=== PATIENT | female | born 1940 | race Caucasian/White ===

== ENCOUNTER → 2020-02-17 13:27 | Outpatient (BNV) | payer MEDICARE, SELFPAY | PROVIDERS: PCP Internal Medicine; Visit Provider Internal Medicine Medical Oncology | DX: C50.912 Malignant neoplasm of unspecified site of left female breast (principal) | CPT/HCPCS: 99213; 99214 ==

== ENCOUNTER 2020-03-31 13:59 | Outpatient (REF) | payer MEDICARE, SELFPAY | END 2020-03-31 14:00 | disposition home or self-care (01) | LOC: HO.LAB 13:59 | PROVIDERS: Visit Provider Internal Medicine | DX: Z20.828 Contact with and (suspected) exposure to other viral communicable diseases (principal) | CPT/HCPCS: 36415; C9803; U0003 ==

== ENCOUNTER 2020-10-04 10:14 | Outpatient (REF) | payer MEDICARE, SELFPAY ==
--- NOTE | ~2020-10-04 | MM_ITS ---
EXAMINATION: MM SCREENING DIGITAL BREAST TOMOSYNTHESIS, BILATERAL CLINICAL INFORMATION: Screening. Asymptomatic. Prior lumpectomy left breast 2012. COMPARISON: Mammography: 09/29/2019, 09/23/2018, 09/20/2017 TECHNIQUE: Digital breast tomosynthesis is performed in both the craniocaudal and mediolateral oblique views along with computer-aided detection (CAD). Synthesized 2D images are generated from the tomosynthesis. Additional left CC view is provided. FINDINGS: The breasts are heterogeneously dense, which may obscure small masses (ACR BI-RADS breast composition Category c). There are post therapy changes on the left with reduced breast size and stable scarring. Neither breast shows developing density or interval mass or architectural abnormality. No abnormal calcifications. No significant changes. MM/MM tomosynthesis screening BI IMPRESSION: No mammographic evidence of malignancy. ASSESSMENT: BI-RADS 2: Benign RECOMMENDATION: Routine annual mammography screening. This patient's information was entered into a reminder system with a target due date for their next mammogram.
== END 2020-10-04 10:15 | disposition home or self-care (01) ==
LOC: HO.MAMMO 10:14
PROVIDERS: PCP Internal Medicine; Visit Provider Internal Medicine Medical Oncology
DX: Z12.31 Encounter for screening mammogram for malignant neoplasm of breast (principal)
CPT/HCPCS: 77063; 77067

== ENCOUNTER 2021-02-02 08:28 | Outpatient (REF) | payer MEDICARE, SELFPAY ==
[2021-02-02 11:23] LABS: MANUAL DIFF FLAG NO
[2021-02-02 11:36] LABS: Basophils Absolute Auto 0.1 X10*3/uL (0.0-0.2); Basophils Percent Auto 0.8 % (0-2); Eosinophils Absolute Auto 0.5 X10*3/uL (0.0-0.4); Eosinophils Percent Auto 5.8 % (0-4); Hematocrit 34.4 % (37.0-47.0); Hemoglobin 11.3 g/dl (12.0-16.0); Imm Gran Abs Auto 0.02 X10*3/uL (0.00-0.03); Imm Gran Pct Auto 0.3 % (0.0-0.4); Lymphocytes Absolute Auto 2.1 X10*3/uL (1.2-4.9); Mean Corpuscular HGB Conc 32.8 g/dl (31.0-35.0); Mean Corpuscular Hemoglobin 31.3 pg (27.0-33.0); Mean Corpuscular Volume 95.3 fL (80.0-98.0); Mean Platelet Volume 10.7 fL (9.4-12.3); Monocytes Absolute Auto 0.6 X10*3/uL (0.1-1.2); Monocytes Percent Auto 7.6 % (2-11); Neutrophils Absolute Auto 4.7 x10*3/uL (2.0-8.3); Neutrophils Percent Auto 59.5 % (45-73); Platelet Count 255 X10*3/uL (160-400); Red Blood Count 3.61 X10*6/uL (4.20-5.50); Red Cell Distribution Width 12.8 % (11.0-16.0); White Blood Count 7.9 X10*3/uL (4.8-10.8)
[2021-02-02 11:47] LABS: Alanine Aminotransferase 15 U/L (0-31); Albumin Level 4.2 g/dL (3.5-5.0); Alkaline Phosphatase 38 U/L (39-117); Anion Gap 10 (12-20); Aspartate Amino Transferase 23 U/L (5-31); Bilirubin Total 0.8 mg/dL (0.0-1.0); Blood Urea Nitrogen 12 mg/dL (9-16); Calcium 9.1 mg/dL (8.4-10.2); Carbon Dioxide 28 mmol/L (22-29); Chloride 102 mmol/L (96-108); Cholesterol 189 mg/dL; Estimated Glomerular Filt Rate > 60; Glucose Random 99 mg/dL (60-115); HDL Cholesterol 68 mg/dL; Iron 98 mcg/dL (30-160); LDL Cholesterol Calculated 110 mg/dl; Percent Iron Saturation 31 % (15-50); Potassium 4.4 mmol/L (3.3-5.1); Sodium 136 mmol/L (135-145); Total Iron Binding Capacity 312 mcg/dL (228-428); Total Protein 7.2 g/dL (6.5-8.0); Triglycerides 56 mg/dL; Unsaturated Iron Binding 214 ug/dL
[2021-02-02 12:08] LABS: Ferritin 254 ng/mL (10-250); Thyroid Stimulating Hormone 1.57 uIU/mL (0.32-4.0)
== END 2021-02-02 08:29 | disposition home or self-care (01) ==
LOC: HO.HMGCLDS 08:28
PROVIDERS: PCP Internal Medicine; Visit Provider Internal Medicine
DX: I10 Essential (primary) hypertension (principal); E78.00 Pure hypercholesterolemia, unspecified; D64.9 Anemia, unspecified
CPT/HCPCS: 36415; 80053; 80061; 82728; 83540; 84443; 85025

== ENCOUNTER 2021-10-05 11:48 | Outpatient (REF) | payer MEDICARE, SELFPAY ==
--- NOTE | ~2021-10-05 | MM_ITS ---
EXAMINATION: BONE DENSITOMETRY CLINICAL INDICATION: Age-related osteoporosis without current pathological fracture. COMPARISON: Previous BD dated 10/17/2016 and baseline BD dated 02/22/2006. TECHNIQUE: Using a [employer] DXA System (software version: 13.1) manufactured by [email or web address], dual-energy x-ray absorptiometry was performed of the lumbar spine and left hip. The images are of good technical quality. Summary results are attached. FINDINGS: AP SPINE L1-L3 (excluding L4): The data of L1-L4 has been changed to exclude the L4 vertebral body, because degenerative changes at this level may cause overestimation of lumbar spine density. Current: BMD 0.748 g/cm2, Z-score -1.0, T-score -3.5, osteoporosis, 8.8% decrease from previous, 11.3% decrease from baseline (<5% change is not significant). Prior: BMD 0.820 g/cm2. Baseline: BMD 0.843 g/cm2. LEFT FEMUR, NECK: Current: BMD 0.582 g/cm2, Z-score -0.7, T-score -3.3, osteoporosis. Prior: BMD 0.679 g/cm2. Baseline: BMD 0.715 g/cm2. LEFT FEMUR, TOTAL: Current: BMD 0.605 g/cm2, Z-score -0.7, T-score -3.2, osteoporosis, 14.9% decrease from previous, 18.8% decrease from baseline (<5% change is not significant). Prior: BMD 0.711 g/cm2. Baseline: BMD 0.745 g/cm2. IDENTIFIED RISK FACTORS: Osteoporosis, height loss, history of fracture (adult), menopause. HISTORY OF FRACTURE: Wrist. MEDICATIONS: Calcium supplements or multivitamin, vitamin D, ERT/SERMS, bisphosphonate. MM/XR DEXA axial skeleton IMPRESSION: 1. DIAGNOSIS: Osteoporosis based on the lowest T-score value of -3.5 in the lumbar spine applying World Health Organization criteria. 2. 10-YEAR FRACTURE RISK PREDICTION, FRAX: According to the guidelines, FRAX calculation should only be performed on patients in the osteopenia bone density category. Therefore, FRAX was not performed on this patient. 3. Treatment Recommendations: NOF guidelines recommend consideration for treatment in postmenopausal women and men age 50 and older presenting with the following: -A hip or vertebral (clinical or morphometric) fracture. -T-score less than or equal to -2.5 at the femoral neck or spine after appropriate evaluation to exclude secondary causes. -Low bone mass at the hip or spine and a 10-year fracture probability by FRAX of greater than or equal to 3% for hip fracture or greater than or equal to 20% for major osteoporotic fracture based on the [place] adapted WHO algorithm. 4. Other Recommendations: All treatment decisions require clinical judgment and consideration of individual patient factors, including patient preferences, comorbidities, previous drug use, risk factors not captured in the FRAX model (e.g. frailty, falls, vitamin D deficiency, increased bone turnover, interval significant decline in bone density) and possible under or overestimation of fracture risk by FRAX. Additional medical evaluation for secondary cause of low bone mineral density may be appropriate. FUTURE SCAN RECOMMENDATION: People with diagnosed cases of osteoporosis or at high risk for fracture should have regular bone mineral density tests. For patients eligible for Medicare, routine testing is allowed once every 2 years. The testing frequency can be increased to one year for patients who have rapidly progressing disease, those who are receiving or discontinuing medical therapy to restore bone mass, or have additional risk factors.
--- NOTE | ~2021-10-05 | MM_ITS ---
EXAMINATION: MM SCREENING DIGITAL BREAST TOMOSYNTHESIS, BILATERAL CLINICAL INFORMATION: Screening. Asymptomatic. Left breast cancer status post lumpectomy, 2012. COMPARISON: Mammography: 10/04/2020, 09/29/2019, 09/23/2018, 09/20/2017 TECHNIQUE: Digital breast tomosynthesis is performed in both the craniocaudal and mediolateral oblique views along with computer-aided detection (CAD). Synthesized 2D images are generated from the tomosynthesis. Additional exaggerated left CC view is provided. FINDINGS: The breasts are heterogeneously dense, which may obscure small masses (ACR BI-RADS breast composition Category c). There are no significant masses, abnormal calcifications, or other abnormalities. Parenchymal pattern is similar to prior studies. There are post therapy changes on the left with reduced breast size and minor scarring similar to prior studies. MM/MM tomosynthesis screening BI IMPRESSION: -No mammographic evidence of malignancy. -Post therapy changes left breast. ASSESSMENT: BI-RADS 2: Benign RECOMMENDATION: Routine annual mammography screening. This patient's information was entered into a reminder system with a target due date for their next mammogram.
== END 2021-10-05 11:49 | disposition home or self-care (01) ==
LOC: HO.MAMMO 11:48
PROVIDERS: Visit Provider Internal Medicine
DX: Z12.31 Encounter for screening mammogram for malignant neoplasm of breast (principal); Z13.820 Encounter for screening for osteoporosis; Z85.3 Personal history of malignant neoplasm of breast; M81.0 Age-related osteoporosis without current pathological fracture; Z78.0 Asymptomatic menopausal state
CPT/HCPCS: 77063; 77067; 77080

== ENCOUNTER 2022-01-25 08:35 | Outpatient (REF) | payer MEDICARE, SELFPAY ==
[2022-01-25 12:45] LABS: Anion Gap 17 (12-20); Blood Urea Nitrogen 13 mg/dL (9-16); Calcium 8.9 mg/dL (8.4-10.2); Carbon Dioxide 24 mmol/L (22-29); Chloride 100 mmol/L (96-108); Estimated Glomerular Filt Rate > 60; Glucose Random 101 mg/dL (60-115); Potassium 4.1 mmol/L (3.3-5.1); Sodium 137 mmol/L (135-145)
== END 2022-01-25 08:36 | disposition home or self-care (01) ==
LOC: HO.HMGCLDS 08:35
PROVIDERS: PCP Internal Medicine; Visit Provider Internal Medicine
DX: I10 Essential (primary) hypertension (principal)
CPT/HCPCS: 36415; 80048

== ENCOUNTER 2022-09-05 09:44 | Outpatient (REF) | payer MEDICARE, SELFPAY ==
[2022-09-05 11:18] LABS: MANUAL DIFF FLAG NO
[2022-09-05 11:28] LABS: Basophils Absolute Auto 0.1 X10*3/uL (0.0-0.2); Basophils Percent Auto 0.6 % (0-2); Eosinophils Absolute Auto 0.3 X10*3/uL (0.0-0.4); Eosinophils Percent Auto 3.6 % (0-4); Hemoglobin 12.6 g/dl (12.0-16.0); Imm Gran Abs Auto 0.04 X10*3/uL (0.00-0.03); Imm Gran Pct Auto 0.4 % (0.0-0.4); Lymphocytes Absolute Auto 1.9 X10*3/uL (1.2-4.9); Lymphocytes Percent Auto 21.1 % (20-40); Mean Corpuscular HGB Conc 34.1 g/dl (31.0-35.0); Mean Corpuscular Hemoglobin 32.8 pg (27.0-33.0); Mean Corpuscular Volume 96.4 fL (80.0-98.0); Mean Platelet Volume 10.1 fL (9.4-12.3); Monocytes Absolute Auto 0.7 X10*3/uL (0.1-1.2); Monocytes Percent Auto 7.7 % (2-11); Neutrophils Percent Auto 66.6 % (45-73); Platelet Count 306 X10*3/uL (160-400); Red Blood Count 3.84 X10*6/uL (4.20-5.50); White Blood Count 9.1 X10*3/uL (4.8-10.8)
[2022-09-05 11:33] LABS: Appearance Urine Clear; Color Urine Yellow; Glucose Urine UA Negative (Negative); Leukocyte Esterase Urine Trace (Negative); Nitrite Urine Negative (Negative); PH 7.5 (5.0-9.0); UMIC TRIGGER UA YES; Urine Blood Negative (Negative); Urine Ketones Trace mg/dL (Negative); Urine Protein Negative (Neg-Trace)
[2022-09-05 11:38] LABS: Bacteria Urine None Seen (None Seen); Hyaline Casts Urine 0-2 /LPF (0-2); RBC Urine 0-2 /HPF (0-2); Squamous Epithelial Cell Urine 0-2 /HPF (0-2); WBC Urine 0-5 /HPF (0-5)
[2022-09-05 11:41] LABS: Estimated Average Glucose 100 mg/dL; Hemoglobin A1c % 5.1 %
[2022-09-05 11:46] LABS: Alanine Aminotransferase 16 U/L (0-31); Albumin Level 4.4 g/dL (3.5-5.0); Alkaline Phosphatase 46 U/L (39-117); Anion Gap 15 (12-20); Aspartate Amino Transferase 23 U/L (5-31); Bilirubin Total 0.9 mg/dL (0.0-1.0); Blood Urea Nitrogen 9 mg/dL (9-16); Calcium 9.6 mg/dL (8.4-10.2); Carbon Dioxide 25 mmol/L (22-29); Chloride 100 mmol/L (96-108); Cholesterol 209 mg/dL; Estimated Glomerular Filt Rate > 60; Glucose Random 94 mg/dL (60-115); HDL Cholesterol 72 mg/dL; LDL Cholesterol Calculated 126 mg/dl; Potassium 4.6 mmol/L (3.3-5.1); Sodium 135 mmol/L (135-145); Total Protein 7.9 g/dL (6.5-8.0); Triglycerides 56 mg/dL
[2022-09-05 12:05] LABS: Thyroid Stimulating Hormone 1.19 uIU/mL (0.32-4.0); Vitamin D 25-OH Total 68.9 ng/mL (>30)
== END 2022-09-05 09:45 | disposition home or self-care (01) ==
LOC: HO.HMGCLDS 09:44
PROVIDERS: PCP Internal Medicine; Visit Provider Internal Medicine
DX: I10 Essential (primary) hypertension (principal); E78.00 Pure hypercholesterolemia, unspecified; M81.6 Localized osteoporosis [Lequesne]; R73.01 Impaired fasting glucose; Z85.3 Personal history of malignant neoplasm of breast
CPT/HCPCS: 36415; 80053; 80061; 81001; 82306; 83036; 84443; 85025

== ENCOUNTER 2022-09-14 14:02 | Outpatient (REF) | payer MEDICARE, SELFPAY ==
--- NOTE | ~2022-09-14 | XR_ITS ---
EXAMINATION: XR CHEST CLINICAL INFORMATION: Hoarseness COMPARISON: June 08, 2017 TECHNIQUE: 2 views of the chest were obtained. FINDINGS: There is hyperinflation of the lungs. No acute parenchymal disease, pneumothorax, or pleural effusion identified. Heart normal size. No evidence of pulmonary edema. XR/XR chest 2V IMPRESSION: No acute disease.
== END 2022-09-14 14:03 | disposition home or self-care (01) ==
LOC: HO.HMGCX 14:02
PROVIDERS: PCP Internal Medicine; Visit Provider Internal Medicine
DX: I10 Essential (primary) hypertension (principal); R49.0 Dysphonia
CPT/HCPCS: 71046

== ENCOUNTER 2022-10-11 11:42 | Outpatient (REF) | payer MEDICARE, SELFPAY ==
--- NOTE | ~2022-10-11 | MM_ITS ---
EXAMINATION: MM SCREENING DIGITAL BREAST TOMOSYNTHESIS, BILATERAL CLINICAL INFORMATION: Screening. Asymptomatic. Left breast cancer status post lumpectomy 2013. COMPARISON: Mammography: 10/05/2021, 10/04/2020, 09/29/2019, 09/23/2018, and dating back to 2013. TECHNIQUE: Digital breast tomosynthesis is performed in both the craniocaudal and mediolateral oblique views along with computer-aided detection (CAD). Synthesized 2D images are generated from the tomosynthesis. FINDINGS: The breasts are heterogeneously dense, which may obscure small masses (ACR BI-RADS breast composition Category c). There are no significant masses, abnormal calcifications, or other abnormalities. Parenchymal pattern is similar to prior studies. There are post therapy changes on the left with reduced breast size and minor scarring similar to prior studies. MM/MM tomosynthesis screening BI IMPRESSION: No mammographic evidence of malignancy. ASSESSMENT: BI-RADS BI-RADS 2 - Benign Findings RECOMMENDATION: Routine annual mammography screening. 1 year F/U This examination should not preclude the clinical evaluation of a suspicious palpable abnormality. This patient's information was entered into a reminder system with a target due date for their next mammogram.
== END 2022-10-11 11:43 | disposition home or self-care (01) ==
LOC: HO.MAMMO 11:42
PROVIDERS: PCP Internal Medicine; Visit Provider Internal Medicine
DX: Z12.31 Encounter for screening mammogram for malignant neoplasm of breast (principal)
CPT/HCPCS: 77063; 77067

== ENCOUNTER → 2022-10-11 11:45 | Outpatient (BNV) | payer MEDICARE, SELFPAY | PROVIDERS: PCP Internal Medicine; Visit Provider Radiology Diagnostic Radiology | DX: Z12.31 Encounter for screening mammogram for malignant neoplasm of breast (principal) | CPT/HCPCS: 77063; 77067 ==

== ENCOUNTER 2022-11-21 13:41 | Outpatient (REF) | payer MEDICARE, SELFPAY ==
--- NOTE | ~2022-11-21 | XR_ITS ---
EXAMINATION: XR CHEST CLINICAL INFORMATION: Acute upper respiratory infection COMPARISON: 09/14/2022 TECHNIQUE: 2 views of the chest were obtained. FINDINGS: The lungs remain hyperinflated. There is no gross pneumothorax. The heart size is normal. No new focal consolidation to suggest pneumonia. No pleural effusion. Degenerative changes in the thoracic spine. XR/XR chest 2V IMPRESSION: No evidence of pneumonia.
== END 2022-11-21 13:42 | disposition home or self-care (01) ==
LOC: HO.HMGCX 13:41
PROVIDERS: PCP Internal Medicine; Visit Provider Internal Medicine
DX: J06.9 Acute upper respiratory infection, unspecified (principal)
CPT/HCPCS: 71046

== ENCOUNTER 2023-03-28 10:42 | Outpatient (REF) | payer MEDICARE, SELFPAY | END 2023-03-28 10:43 | disposition home or self-care (01) | LOC: HO.HMGCLDS 10:42 | PROVIDERS: PCP Internal Medicine; Visit Provider Internal Medicine | DX: I10 Essential (primary) hypertension (principal) | CPT/HCPCS: 36415; 80048 ==

== ENCOUNTER 2023-04-02 13:49 | Outpatient (REF) | payer MEDICARE, SELFPAY ==
[2023-04-02 16:09] LABS: MANUAL DIFF FLAG NO
[2023-04-02 16:10] LABS: Appearance Urine Clear; Color Urine Yellow; Glucose Urine UA Negative (Negative); Leukocyte Esterase Urine Negative (Negative); Nitrite Urine Negative (Negative); Urine Blood Negative (Negative); Urine Ketones Trace mg/dL (Negative); Urine Protein Negative (Neg-Trace)
[2023-04-02 16:14] LABS: Basophils Percent Auto 0.4 % (0-2); Eosinophils Percent Auto 0.2 % (0-4); Hemoglobin 9.8 g/dl (12.0-16.0); Imm Gran Abs Auto 0.05 X10*3/uL (0.00-0.03); Imm Gran Pct Auto 0.5 % (0.0-0.4); Lymphocytes Absolute Auto 0.9 X10*3/uL (1.2-4.9); Lymphocytes Percent Auto 9.5 % (20-40); Mean Corpuscular HGB Conc 32.7 g/dl (31.0-35.0); Mean Corpuscular Hemoglobin 30.6 pg (27.0-33.0); Mean Corpuscular Volume 93.8 fL (80.0-98.0); Mean Platelet Volume 9.1 fL (9.4-12.3); Monocytes Absolute Auto 0.5 X10*3/uL (0.1-1.2); Monocytes Percent Auto 5.7 % (2-11); Neutrophils Percent Auto 83.7 % (45-73); Platelet Count 505 X10*3/uL (160-400); Red Cell Distribution Width 13.4 % (11.0-16.0); White Blood Count 9.5 X10*3/uL (4.8-10.8)
[2023-04-02 16:24] LABS: D Dimer High Sensitivity 526 NG/ML
[2023-04-02 16:31] LABS: Alanine Aminotransferase 16 U/L (0-31); Albumin Level 3.6 g/dL (3.5-5.0); Alkaline Phosphatase 66 U/L (39-117); Anion Gap 12 (12-20); Aspartate Amino Transferase 20 U/L (5-31); Bilirubin Total 0.3 mg/dL (0.0-1.0); Blood Urea Nitrogen 8 mg/dL (9-16); Calcium 8.8 mg/dL (8.4-10.2); Carbon Dioxide 26 mmol/L (22-29); Chloride 98 mmol/L (96-108); Estimated Glomerular Filt Rate > 60; Glucose Random 141 mg/dL (60-115); Sodium 132 mmol/L (135-145)
== END 2023-04-02 13:50 | disposition home or self-care (01) ==
LOC: HO.HMGCLDS 13:49
PROVIDERS: PCP Internal Medicine; Visit Provider Internal Medicine
DX: R06.09 Other forms of dyspnea (principal); R60.0 Localized edema; R35.1 Nocturia
CPT/HCPCS: 36415; 80053; 81003; 85025; 85379; 87086

== ENCOUNTER 2023-04-03 12:53 | Outpatient (REF) | payer MEDICARE, SELFPAY ==
--- NOTE | ~2023-04-03 | US_ITS ---
EXAMINATION: US VENOUS ULTRASOUND WITH DOPPLER LOWER EXTREMITY, BILATERAL CLINICAL INFORMATION: Elevated d-dimer COMPARISON: None available. TECHNIQUE: Ultrasound of the deep veins is performed from the hip to the calf with compression sonography and color and pulse Doppler assessment. Spectral analysis with color-flow imaging is performed. FINDINGS: RIGHT: There is normal venous compression and respiratory variation and augmented flow. The visualized common femoral vein, superficial femoral vein, profunda femoral vein, popliteal vein, and the trifurcation region shows no evidence of deep venous thrombosis. There is no significant popliteal fossa cyst. LEFT: There is normal venous compression and respiratory variation and augmented flow. The visualized common femoral vein, superficial femoral vein, profunda femoral vein, popliteal vein, and the trifurcation region shows no evidence of deep venous thrombosis. There is no significant popliteal fossa cyst. If the patient's symptoms persist, followup ultrasound in 5 days 7 days might be of value to exclude proximal propagation from a non-visualized calf vein. US/US venous duplex LE BI IMPRESSION: No DVT demonstrated in either lower extremity.
== END 2023-04-03 12:54 | disposition home or self-care (01) ==
LOC: HO.US 12:53
PROVIDERS: PCP Internal Medicine; Visit Provider Internal Medicine
DX: R60.0 Localized edema (principal)
CPT/HCPCS: 93970

== ENCOUNTER → 2023-04-10 13:01 | Outpatient (REF) | payer MEDICARE, SELFPAY ==
--- NOTE | 2023-04-10 13:04 | CA_ITS ---
Transthoracic Echocardiogram Patient (Last, First, Middle): Katrina Ocampo E Gender: Female Date of : 1940 Age: 83 Procedure Date: 04/10/2023 Procedure Type: Transthoracic Echocardiogram Location: OP Height: 154.94 cm Weight: 44.45 kg BSA: 1.40 m2 Heart Rate: bpm BP: 110 / 60 mmHg [employer]: STEFANI Referring MD: Daniel Francois MD Symptoms: CONNELLY R06.09, PRIMARY HTN I10 EDEMA R60.0 Study Quality: Adequate ECG Rhythm: Sinus Conclusions: - The left ventricular systolic function is normal. The visually estimated ejection fraction is between 65-70%. - No obvious valvular pathology seen on this study. Findings Procedure Information The study quality is limited by patients body habitus. Left Ventricle Normal left ventricular cavity size. There is normal left ventricular wall thickness. The left ventricular systolic function is normal. The visually estimated ejection fraction is between 65-70%. There is no evidence of regional wall motion abnormalities. LV peak GLS -17.7%. Right Ventricle Normal right ventricular cavity size and systolic function. Atria Both atria are normal in size. Aortic Valve There is a normal trileaflet aortic valve. There is no aortic valve stenosis. There is no aortic valve regurgitation. Mitral Valve There is mild mitral annular calcification. There is trace mitral valve regurgitation. There is no mitral valve stenosis. Pulmonic Valve The pulmonic valve is likely normal. Tricuspid Valve Normal tricuspid valve structure. There is trace tricuspid valve regurgitation. There is no evidence of pulmonary hypertension. Great Vessels The asc aorta is normal in size. Venous The inferior vena cava is normal in size and collapses greater than 50% with inspiration. Pericardium/Pleural There is no evidence of pericardial effusion. Prior Study Comparison No prior study available for comparison. Recommendations, Care & Conclusions No obvious valvular pathology seen on this study. Measurements 2D Linear Measurements IVSd: 0.78 0.6-0.9/0.6-1.0 cm LVIDd: 3.23 3.9-5.3/4.2-5.9 cm LVIDd Index: 2.31 2.4-3.2/2.2-3.1 cm/m2 LVIDs: 1.76 2.0-3.6 cm LVPWd: 0.73 0.7-1.1 cm LA Diam: 1.90 2.7-3.8/3.0-4.0 cm LAIDs Index: 1.36 1.5-2.3 cm/m2 LV Mass: 75.01 67-162/88-224 g LV Mass Index: 53.58 43-95/49-115 g/m2 LVOT Diam: 1.80 3.0+(-)1.3 cm 2D Systolic Function EF 4C: 75.10 >55% EF 2C: 71.30 >55% EF BiP: 74.00 >55% Mitral Valve MV Pk E: 0.70 MV PK A: 0.72 MV Decel Time: 202.00 E/A: 1.00 E'Lateral: 9.03 E'Medial: 6.64 E/E' Med: 10.60 E/E' Lat: 7.80 PHT: 59.00 MVA PHT: 3.73 Decel Imperial: 3.49 Aortic Valve AoV Pk Cal: 1.33 AoV Mn Cal: 0.88 AoV VTI: 0.25 AoV Pk Grad: 7.00 Aov Mn Grad: 4.00 SERENITY Cont.VTI: 2.42 LVOT LVOT Pk Cal: 1.09 LVOT Mn Cal: 0.73 LVOT VTI: 0.24 LVOT Pk Grad: 5.00 LVOT Mn Grad: 2.00 LVOT Diam: 1.80 LVOT Area: 2.54 Diastolic Function MV Pk E: 0.70 MV Pk A: 0.72 E/A: 1.00 E'Medial: 6.64 E/E' Med: 10.60 E' Laterial: 9.03 E/E' Lat: 7.80 Tricuspid Valve TR Pk Cal: 2.63 TR Pk Grad: 28.00 RA Press: 3.00 RVSP: 31.00 Great Vessels Aorta Ao Asc: 2.60 2.1-3.4 cm Updated in Other Vendor System with Status of Final Minh Bah MD electronically signed on 04/11/2023 11:55:30 AM with status of Final
== END ==
LOC: HO.CARD 13:01
PROVIDERS: PCP Internal Medicine; Visit Provider Internal Medicine
DX: R06.09 Other forms of dyspnea (principal); R60.0 Localized edema; I10 Essential (primary) hypertension
CPT/HCPCS: 93306; 93356

== ENCOUNTER → 2023-04-10 13:04 | Outpatient (BNV) | payer MEDICARE, SELFPAY | PROVIDERS: PCP Internal Medicine; Visit Provider Internal Medicine | DX: I34.81 Nonrheumatic mitral (valve) annulus calcification (principal) | CPT/HCPCS: 93306 ==

== ENCOUNTER 2023-04-25 13:09 | Outpatient (REF) | payer MEDICARE, SELFPAY ==
--- NOTE | ~2023-04-25 | XR_ITS ---
EXAMINATION: XR CHEST CLINICAL INFORMATION: Pleural effusion. COMPARISON: 11/21/2022 TECHNIQUE: 2 views of the chest were obtained. FINDINGS: The lungs remain hyperexpanded. Right lower lobe infiltrate. No pleural effusion. Cardiac silhouette is unchanged. XR/XR chest 2V IMPRESSION: Right lower lobe pneumonia. Follow-up until resolution is advised.
== END 2023-04-25 13:10 | disposition home or self-care (01) ==
LOC: HO.XRAY 13:09
PROVIDERS: PCP Internal Medicine; Visit Provider Internal Medicine
DX: J90 Pleural effusion, not elsewhere classified (principal)
CPT/HCPCS: 71046

== ENCOUNTER 2023-04-27 11:42 | Outpatient (REF) | payer MEDICARE, SELFPAY ==
[2023-04-27 13:08] LABS: MANUAL DIFF FLAG NO
[2023-04-27 13:32] LABS: Basophils Absolute Auto 0.1 X10*3/uL (0.0-0.2); Basophils Percent Auto 0.8 % (0-2); Eosinophils Absolute Auto 0.1 X10*3/uL (0.0-0.4); Eosinophils Percent Auto 0.8 % (0-4); Imm Gran Abs Auto 0.03 X10*3/uL (0.00-0.03); Imm Gran Pct Auto 0.4 % (0.0-0.4); Lymphocytes Absolute Auto 1.9 X10*3/uL (1.2-4.9); Lymphocytes Percent Auto 24.3 % (20-40); Mean Corpuscular HGB Conc 32.4 g/dl (31.0-35.0); Mean Corpuscular Hemoglobin 29.8 pg (27.0-33.0); Mean Corpuscular Volume 92.1 fL (80.0-98.0); Mean Platelet Volume 9.1 fL (9.4-12.3); Monocytes Absolute Auto 0.7 X10*3/uL (0.1-1.2); Monocytes Percent Auto 8.9 % (2-11); Neutrophils Percent Auto 64.8 % (45-73); Platelet Count 359 X10*3/uL (160-400); Red Blood Count 3.69 X10*6/uL (4.20-5.50); Red Cell Distribution Width 13.2 % (11.0-16.0); White Blood Count 7.7 X10*3/uL (4.8-10.8)
[2023-04-27 14:17] LABS: Alanine Aminotransferase 13 U/L (0-31); Alkaline Phosphatase 56 U/L (39-117); Anion Gap 13 (12-20); Aspartate Amino Transferase 21 U/L (5-31); Bilirubin Total 0.3 mg/dL (0.0-1.0); Blood Urea Nitrogen 10 mg/dL (9-16); Carbon Dioxide 26 mmol/L (22-29); Chloride 99 mmol/L (96-108); Estimated Glomerular Filt Rate > 60; Glucose Random 90 mg/dL (60-115); Iron 83 mcg/dL (30-160); Percent Iron Saturation 28 % (15-50); Potassium 4.3 mmol/L (3.3-5.1); Sodium 134 mmol/L (135-145); Total Iron Binding Capacity 298 mcg/dL (228-428); Total Protein 7.7 g/dL (6.5-8.0); Unsaturated Iron Binding 215 ug/dL
[2023-04-27 14:36] LABS: Ferritin 211 ng/mL (10-250); Thyroid Stimulating Hormone 1.35 uIU/mL (0.32-4.0)
[2023-04-27 15:16] LABS: Folate 5.7 ng/mL (> or = 4.0); Vitamin B12 535 pg/mL (200-900)
== END 2023-04-27 11:43 | disposition home or self-care (01) ==
LOC: HO.HMGCLDS 11:42
PROVIDERS: PCP Internal Medicine; Visit Provider Internal Medicine
DX: J90 Pleural effusion, not elsewhere classified (principal); I10 Essential (primary) hypertension; D64.9 Anemia, unspecified
CPT/HCPCS: 36415; 80053; 82607; 82728; 82746; 83540; 84443; 85025

== ENCOUNTER 2023-06-14 11:53 | Outpatient (REF) | payer MEDICARE, SELFPAY ==
--- NOTE | ~2023-06-14 | XR_ITS ---
EXAMINATION: XR CHEST CLINICAL INFORMATION: Pneumonia COMPARISON: 04/25/2023 TECHNIQUE: 2 views of the chest were obtained. FINDINGS: Seen on the previous examination right lower lobe pneumonia has been resolved. The rest of lungs are clear and cardiomediastinal silhouette is normal. Osseous structures are unremarkable XR/XR chest 2V IMPRESSION: Resolution of pneumonia
== END 2023-06-14 11:54 | disposition home or self-care (01) ==
LOC: HO.XRAY 11:53
PROVIDERS: PCP Internal Medicine; Visit Provider Internal Medicine
DX: J18.8 Other pneumonia, unspecified organism (principal)
CPT/HCPCS: 71046

== ENCOUNTER 2023-10-16 11:42 | Outpatient (REF) | payer MEDICARE, SELFPAY ==
--- NOTE | ~2023-10-16 | MM_ITS ---
EXAMINATION: MM SCREENING DIGITAL BREAST TOMOSYNTHESIS, BILATERAL CLINICAL INFORMATION: Screening. Asymptomatic. The patient has a history of prior left breast cancer which has been treated with conservation surgery. COMPARISON: Mammography: This study is compared with prior exams dating back to TECHNIQUE: Digital breast tomosynthesis is performed in both the craniocaudal and mediolateral oblique views along with computer-aided detection (CAD). Synthesized 2D images are generated from the tomosynthesis. FINDINGS: There are scattered areas of fibroglandular density (ACR BI-RADS breast composition Category b). There are no significant masses, abnormal calcifications, or other abnormalities. There are architectural changes in the left breast from prior surgery for breast cancer. MM/MM tomosynthesis screening BI IMPRESSION: No mammographic evidence of malignancy. ASSESSMENT: BI-RADS BI-RADS 2 - Benign Findings RECOMMENDATION: Routine annual mammography screening. 1 year F/U This examination should not preclude the clinical evaluation of a suspicious palpable abnormality. This patient's information was entered into a reminder system with a target due date for their next mammogram.
== END 2023-10-16 11:43 | disposition home or self-care (01) ==
LOC: HO.MAMMO 11:42
PROVIDERS: PCP Internal Medicine; Visit Provider Internal Medicine
DX: Z12.31 Encounter for screening mammogram for malignant neoplasm of breast (principal)
CPT/HCPCS: 77063; 77067

== ENCOUNTER → 2023-10-16 11:45 | Outpatient (BNV) | payer MEDICARE, SELFPAY | PROVIDERS: PCP Internal Medicine; Visit Provider Radiology Diagnostic Radiology | DX: Z12.31 Encounter for screening mammogram for malignant neoplasm of breast (principal) | CPT/HCPCS: 77063; 77067 ==

== ENCOUNTER 2023-11-02 12:49 | Outpatient (REF) | payer MEDICARE, SELFPAY ==
--- NOTE | ~2023-11-02 | MM_ITS ---
EXAMINATION: BONE DENSITOMETRY CLINICAL INDICATION: Age-related osteoporosis without current pathological fracture. COMPARISON: Previous BD dated 10/05/2021 and baseline BD dated 02/22/2006. TECHNIQUE: Using a [employer] DXA System (software version: 13.1) manufactured by [employer], dual-energy x-ray absorptiometry was performed of the lumbar spine and left hip. The images are of good technical quality. Summary results are attached. FINDINGS: LEFT FEMUR, NECK: Current: BMD 0.689 g/cm2, Z-score 0.2, T-score -2.5, osteoporosis. Prior: BMD 0.582 g/cm2. Baseline: BMD 0.715 g/cm2. LEFT FEMUR, TOTAL: Current: BMD 0.654 g/cm2, Z-score -0.2, T-score -2.8, osteoporosis, 8.1% increase from previous, 12.2% decrease from baseline (<5% change is not significant). Prior: BMD 0.605 g/cm2. Baseline: BMD 0.745 g/cm2. AP SPINE L1-L2 (excluding L3 and L4): The data of L1-L4 has been changed to exclude the L3 and L4 vertebral bodies, because degenerative sclerosis at these levels may cause overestimation of lumbar spine density. Current: BMD 0.621 g/cm2, Z-score -2.0, T-score -4.5, osteoporosis, 9.9% decrease from previous, 21.4% decrease from baseline (<5% change is not significant). Prior: BMD 0.689 g/cm2. Baseline: BMD 0.790 g/cm2. IDENTIFIED RISK FACTORS: Height loss, history of fracture (adult), osteoporosis, menopause. HISTORY OF FRACTURE: Wrist. MEDICATIONS: Calcium supplements or multivitamin, vitamin D, bisphosphonates, ERT/SERMS. MM/XR DEXA axial skeleton IMPRESSION: 1. DIAGNOSIS: Severe osteoporosis based on the lowest T-score value of -4.5 in the lumbar spine and history of fracture applying World Health Organization criteria. 2. 10-YEAR FRACTURE RISK PREDICTION, FRAX: According to the guidelines, FRAX calculation should only be performed on patients in the osteopenia bone density category. Therefore, FRAX was not performed on this patient. 3. Treatment Recommendations: NOF guidelines recommend consideration for treatment in postmenopausal women and men age 50 and older presenting with the following: -A hip or vertebral (clinical or morphometric) fracture. -T-score less than or equal to -2.5 at the femoral neck or spine after appropriate evaluation to exclude secondary causes. -Low bone mass at the hip or spine and a 10-year fracture probability by FRAX of greater than or equal to 3% for hip fracture or greater than or equal to 20% for major osteoporotic fracture based on the [place] adapted WHO algorithm. 4. Other Recommendations: All treatment decisions require clinical judgment and consideration of individual patient factors, including patient preferences, comorbidities, previous drug use, risk factors not captured in the FRAX model (e.g. frailty, falls, vitamin D deficiency, increased bone turnover, interval significant decline in bone density) and possible under or overestimation of fracture risk by FRAX. Additional medical evaluation for secondary cause of low bone mineral density may be appropriate. FUTURE SCAN RECOMMENDATION: People with diagnosed cases of osteoporosis or at high risk for fracture should have regular bone mineral density tests. For patients eligible for Medicare, routine testing is allowed once every 2 years. The testing frequency can be increased to one year for patients who have rapidly progressing disease, those who are receiving or discontinuing medical therapy to restore bone mass, or have additional risk factors.
== END 2023-11-02 12:50 | disposition home or self-care (01) ==
LOC: HO.MAMMO 12:49
PROVIDERS: PCP Internal Medicine; Visit Provider Internal Medicine Medical Oncology
DX: M81.0 Age-related osteoporosis without current pathological fracture (principal)
CPT/HCPCS: 77080

== ENCOUNTER 2023-12-22 07:21 | Inpatient (IN) | payer MEDICARE, SELFPAY ==
[2023-12-22] VITALS (11 sets, daily range): BP systolic 98–156; BP diastolic 41–74; PULSE 89–111; RESP 15–20; TEMP 36.4–37.4; O2SAT 94–98; BMI 18.5
--- NOTE | ~2023-12-22 | XR_ITS ---
EXAMINATION: XR CHEST CLINICAL INFORMATION: Fever, rule out pneumonia COMPARISON: 05/25/2023 TECHNIQUE: Frontal view of the chest was obtained. FINDINGS: Cardiomediastinal silhouette is stable. The lungs are hyperexpanded. Streaky opacity in the right lung base. No large effusion or pneumothorax. Bones are demineralized. XR/XR chest 1V IMPRESSION: Streaky opacity in the right lung base may represent atelectasis versus developing infiltrate. Electronically signed by: Faisal Ware MD 12/22/2023 07:59 AM EDT
--- NOTE | ~2023-12-22 | CT_ITS ---
EXAMINATION: CT brain and CT cervical spine without contrast. CLINICAL INDICATION: Syncope and head injury. Neck pain. COMPARISON: None. TECHNIQUE: 2 mm thin axial and reformatted 2 mm thin sagittal and coronal images of brain were obtained. Subsequently axial 3 mm and reformatted 2 mm thin sagittal and coronal images of cervical spine were obtained. DLP [id number]. This CT examination was performed using dose optimization technique as appropriate, variously including the following: Automated exposure control Adjustment of MA and/or KV according to patient size(this includes techniques or standardized protocols for targeted exams where dose is matched to indication/reason for exam; extremities or head. Use of iterative reconstruction techniques. FINDINGS: There is no acute intra-axial, extra-axial bleed, masses or midline shift. There is no acute infarction in evolution. There is no edema. [place] to white matter differentiation is maintained normal. The lateral ventricles are symmetrical in size and configuration without enlargement. Bone windows reveal no calvarial abnormality. There is no scalp soft tissue abnormality. There is diffuse mucoperiosteal thickening bilateral ethmoid and right sphenoid and left maxillary sinuses. There is moderate sized polyp or retention cyst right maxillary sinus. Cervical spine: On sagittal reconstructed images there is maintained cervical lordosis. The vertebral heights and alignment is normal. There is loss of C5-6 disc height with vacuum disc phenomena and ventral and posterior spondylosis. Rest of the disc heights are maintained normal. The craniovertebral junction and the C1-C2 alignment is normal. There is moderate right C3-4 C4-5. Joint arthropathy and hypertrophy. No aggressive lytic or sclerotic process seen. The lung apices are clear. Central trachea and the bronchi are widely patent. CT/CT cervical spine wo IV con IMPRESSION: 1. No acute intracranial process seen. 2. Chronic pansinusitis. 3. Degenerative disc changes C5-6 disc level with ventral and posterior spondylosis. No visible acute fracture, dislocation or subluxation seen. Electronically signed by: Magdaleno Guy MD 12/22/2023 09:07 AM EDT
--- NOTE | 2023-12-22 07:40 | ECG_ITS ---
Test Reason : DIZZINESS Blood Pressure : / mmHG Vent. Rate : 098 BPM Atrial Rate : 098 BPM P-R Int : 140 ms QRS Dur : 070 ms QT Int : 324 ms P-R-T Axes : 083 057 066 degrees QTc Int : 413 ms Normal sinus rhythm Normal ECG No previous ECGs available Referred By: Kevin Rankin Electronically Signed By:MANNIE AYOUB
--- NOTE | 2023-12-22 07:42 | ED.SYNCOPE ---
HPI - Syncope General Chief Complaint: Syncope Stated Complaint: SYNCOPE AT HOME DIZZINESS Time Seen by Provider: 12/22/23 07:24 Source: patient and EMS Mode of arrival: EMS Limitations: no limitations History of Present Illness ED Provider: Dr. Kevin Rankin HPI narrative: 81-year-old female with a history of left-sided breast cancer status post lumpectomy/radiation therapy 2012, asthma, osteoporosis who presents emergency department for fever, cough, shortness of breath, syncope, COVID positive. Patient states she has been sick for proximally 1 week. She has had a dry nonproductive cough. She denied chest pain. She states she feels short of breath at rest and has dyspnea on exertion. She has had nausea with no vomiting. She states that today she had 2 episodes of loose brown stool with no blood in the stool. She has had urinary frequency but no dysuria. Patient states that she got out of bed to urinate and while she was walking to the bathroom she felt lightheaded and dizzy and she knew she was going to faint. She grabbed on to the towel rack but fell in her bathroom. She did strike her chin and lost consciousness. She denied headache or neck pain. Patient was brought to emergency department by ambulance. According to the paramedics the patient had an elevated heart rate of 105-110 beats per minute she felt warm to the touch. She was given normal saline 250 cc IV. The patient did see her PCP and tested positive for COVID-19. At the PCP's office you had a fever 102 and right lower lobe crackles. Given her positive COVID test she was not started on antibiotics. The patient was not been vaccinated for COVID-19. She states she has never had a COVID-19 infection. She has received her pneumococcal vaccine. Related Data Home Medications ?Medication ?Instructions ?Recorded ?Confirmed albuterol sulfate 90 mcg/actuation 1 puff inhalation QID PRN 02/17/20 11/22/23 aerosol inhaler (Ventolin HFA) Shortness Of Breath fluticasone propionate 110 1 puff inhalation BID PRN 02/17/20 11/22/23 mcg/actuation HFA aerosol inhaler Shortness Of Breath (Flovent HFA) valsartan 160 mg tablet (Diovan) 1 tab PO DAILY 02/17/20 11/22/23 calcium carbonate 600 mg-vitamin 1 tab PO DAILY 02/20/22 11/22/23 D3 10 mcg (400 unit) tablet Previous Rx's ?Medication ?Instructions ?Recorded raloxifene 60 mg tablet 60 mg PO DAILY #30 tabs 10/08/23 Allergies Allergy/AdvReac Type Severity Reaction Status Date / Time irbesartan [IRBESARTAN] Allergy Severe rash Verified 12/22/23 07:36 lisinopril [LISINOPRIL] Allergy Intermediate COUGH, Verified 12/22/23 07:36 oral itching - rash Penicillins [PENICILLINS] Allergy Intermediate RASH Verified 12/22/23 07:36 sulfamethoxazole Allergy Intermediate RASH, FELT Verified 12/22/23 07:36 [From BACTRIM] STRANGE trimethoprim [From BACTRIM] Allergy Intermediate RASH, FELT Verified 12/22/23 07:36 STRANGE penicillin V Allergy Unknown rash Verified 12/22/23 07:36 Sulfa (Sulfonamide Allergy Unknown rash Verified 12/22/23 07:36 Antibiotics) Review of Systems Review of Systems: Yes all other systems are reviewed and are negative [facility] Past Medical History [facility] Narrative: Social history: She denies tobacco use. She occasionally drinks wine but has not drank recently. She denies drug use. Medical History Breast cancer, left Cataracts, bilateral Osteoporosis Surgical History H/O lumpectomy H/O: Hx of cataract extraction Family History Family History Father Parkinson disease Social History Social History Household Members: None Housing: House Are you a primary care transition mgr to a significant other at home: No Do you presently have visiting nurse or other home services: No Alcohol intake: current Alcohol intake frequency: a few times a week Alcohol type: wine Patient Tobacco Use Status: Never used Tobacco Smoked in Last 30 Days: No Advance Directives: No Advance Directives Information Provided: Yes service: No Current occupational status: retired Physical Exam Vital Signs: Vital Signs: Last Vital Signs Temp 99.2 F 12/22/23 09:30 Pulse 90 12/22/23 09:30 Resp 18 12/22/23 09:30 BP 127/54 L 12/22/23 09:30 Pulse Ox 98 12/22/23 08:34 O2 Del Method Room Air 12/22/23 08:34 BMI result Body Mass Index 18.5 Vital signs revealed an elevated heart rate of 104 beats per minute and elevated blood pressure of 156/67. O2 saturation was 97% on room air Exam: General: Awake, alert in no distress Head: Normocephalic, right chin ecchymosis with no tenderness or laceration EENT: PERRL, Lids normal, sclera normal, conjunctiva normal, nose normal , ears normal, throat without erythema or exudates Neck: Supple, no adenopathy Lung: Rhonchi and rales at the right base, no wheezing, breath sounds symmetric Chest: symmetric movement, nontender Heart: regular rate and rhythm, normal S1, S2 no murmurs or rubs Abdomen: soft, non-tender, nondistended, normal bowel sounds Back: no vertebral tenderness, no CVAT Extremities: no deformities, moves all extremities symmetrically Neuro: Awake, alert, oriented, normal speech, cranial nerves intact, moves all extremities symmetrically Psych: Pleasant, cooperative Medications Administered Generic Name Dose Route Start Last Admin Trade Name Freq PRN Reason Stop Dose Admin Azithromycin 500 mg/ Sodium 250 mls @ 125 mls/hr 12/22/23 08:32 12/22/23 09:30 Chloride IV 12/22/23 10:31 125 mls/hr ONCE ONE Administration Discontinued Medications Generic Name Dose Route Start Last Admin Trade Name Freq PRN Reason Stop Dose Admin Acetaminophen 975 mg 12/22/23 07:40 12/22/23 08:07 Acetaminophen 325 Mg Tablet PO 12/22/23 07:41 975 mg ONCE STA Administration Sodium Chloride 1,000 mls @ 999 mls/hr 12/22/23 07:40 12/22/23 09:31 Ns IV 12/22/23 08:40 Infused .Q1H1M STA Infusion Ceftriaxone Sodium 1 gm/ 50 mls @ 100 mls/hr 12/22/23 08:32 12/22/23 08:50 Sodium Chloride IV 12/22/23 09:01 100 mls/hr ONCE ONE Administration Ondansetron HCl 4 mg 12/22/23 07:40 12/22/23 08:07 Ondansetron Hcl 4 Mg/2 Ml Vial IVPUSH 12/22/23 07:41 4 mg ONCE ONE Administration Medical Decision Making Medical Decision Making MDM Narrative: 83-year-old female with a history of left-sided breast cancer status post lumpectomy/radiation therapy 2012, asthma, osteoporosis who presents emergency department for fever, cough, shortness of breath, syncope, COVID positive. Patient has been symptomatic for 1 week, tested positive at her doctor's office. Patient was not been vaccinated for COVID-19 in his not had COVID-19 infection. She has had her pneumococcal vaccine. Patient did have a syncopal episode prior to coming to the emergency department and did strike her chin on the floor with a loss of consciousness. Vital signs revealed an elevated heart rate with an elevated blood pressure normal O2 saturation on room air. Patient does have ecchymosis to her right chin from her fall. Lung exam did reveal rales and rhonchi at the right base which was asymmetric compared to the left 08:28 Differential diagnosis: ?Includes but is not limited to COVID-19 pneumonia, bacterial pneumonia, electrolyte abnormalities, anemia, closed head injury, skull fracture, intracranial bleed , neck fracture Patient was initially treated with the following: Zofran 4 mg IV, Tylenol 975 mg orally, normal saline x1 L Course: 08:28 Patient's laboratory evaluation is pending collection. Patient's chest x-ray is concerning for right lower lobe infiltrate. This could be viral pneumonia caused by COVID-19 however given her age and her syncope I am concerned that she may have a bacterial pneumonia. Therefore she was ordered to get ceftriaxone 1 g IV and azithromycin 500 mg IV. 10:13 My interpretation patient's laboratory evaluation is as follows: WBC elevated 21,300 with a left shift 87 neutrophils and 6 bands. Normocytic anemia which appears to be chronic with an H&H of 12 and 35.6. Sodium low 134 CMP was otherwise unremarkable. BNP elevated 103. Troponin below detectable limits. Influenza and RSV were negative. COVID-19 was positive. Given the patient's syncopal episode and possibility of a bacterial pneumonia, the patient will be admitted for IV antibiotics and cardiac monitoring. I did discuss the patient's presentation over tiger text with the covering hospitalist, . Admission/Observation Consideration of admission/observation: Escalation of care including admission/observation considered (Yes) Consult Healthcare Provider Management of the patient was discussed with: Hospitalist (Dr. Owusu) Lab Data MDM Lab Attestation statement: I reviewed the patient's lab results. 12/22/23 08:25 12/22/23 08:24 Labs: Lab Results 12/22/23 12/22/23 Range/Units 08:24 08:25 WBC 21.3 H (4.8-10.8) X10*3/uL RBC 3.91 L (4.20-5.50) X10*6/uL Hgb 12.0 (12.0-16.0) g/dl Hct 35.6 L (37.0-47.0) % MCV 91.0 (80.0-98.0) fL MCH 30.7 (27.0-33.0) pg MCHC 33.7 (31.0-35.0) g/dl RDW 13.1 (11.0-16.0) % Plt Count 268 (160-400) X10*3/uL MPV 8.9 L (9.4-12.3) fL Immature Gran % (Auto) Cancelled Neut % (Auto) Cancelled Lymph % (Auto) Cancelled [place] % (Auto) Cancelled Eos % (Auto) Cancelled Baso % (Auto) Cancelled Lymph # (Auto) Cancelled [place] # (Auto) Cancelled Eos # (Auto) Cancelled Baso # (Auto) Cancelled Abs Immat Gran (auto) Cancelled Absolute Neuts (auto) Cancelled Absolute Nucleated RBC 0.000 (0.0-0.012) X10*3/uL Nucleated RBC % (auto) 0.0 (0.0-0.2) /100WBC Neutrophils % (Manual) 87 H (45-73) % Band Neutrophils % 6 H (3-5) % Lymphocytes % (Manual) 3 L (20-40) % Monocytes % (Manual) 4 (2-11) % Abs Neuts (Manual) 19.8 H (2.0-8.3) X10*3/uL Lymphocytes # (Manual) 0.6 L (1.2-4.9) X10*3/uL Monocytes # (Manual) 0.9 (0.1-1.2) X10*3/uL Toxic Vacuolation PRESENT Platelet Estimate NORMAL (NORMAL) Plt Morphology Comment NORMAL RBC Morphology NORMAL APTT 28.4 (26.0-36.8) SEC Sodium 134 L (135-145) mmol/L Potassium 3.9 (3.3-5.1) mmol/L Chloride 100 (96-108) mmol/L Carbon Dioxide 25 (22-29) mmol/L Anion Gap 13 (12-20) BUN 9 (9-16) mg/dL Creatinine 0.69 (0.5-1.4) mg/dL Estim Creat Clear Calc 44.0 Estimated GFR > 60 Random Glucose 107 (60-115) mg/dL Lactic Acid 1.0 (0.5-2.0) mmol/L Calcium 8.7 D (8.4-10.2) mg/dL Magnesium 2.0 (1.6-2.6) mg/dL Total Bilirubin 0.7 (0.0-1.0) mg/dL AST 24 (5-31) U/L ALT 20 (0-31) U/L Alkaline Phosphatase 54 (39-117) U/L Troponin I High Sens < 2.7 (<3.5-17.0) ng/L B-Natriuretic Peptide 103 H (<100) pg/mL Total Protein 7.2 (6.5-8.0) g/dL Albumin 4.0 (3.5-5.0) g/dL Lipase 22 (8-78) U/L Influenza Type A (PCR) NEGATIVE (Negative) Influenza Type B (PCR) NEGATIVE (Negative) RSV RNA Qual (PCR) NEGATIVE (Negative) SARS-CoV-2 RNA (RT-PCR) POSITIVE A (Negative) Independent Interpretation I performed an independent interpretation of an: Plain X-Ray Interpretation: My interpretation of the patient's One-view chest x-ray: Right lower lobe infiltrates My interpretation patient's 12 EKG done at 07:52 hours is as follows: Normal sinus rhythm rate of 98, normal OH interval, QRS duration QTC interval, no ST segment elevation, no ST segment depression Radiology Impression Discussion of test interpretation with radiology: I have reviewed the radiologist's reading. Radiologist Impression: XR chest 1V IMPRESSION: Streaky opacity in the right lung base may represent atelectasis versus developing infiltrate. Electronically signed by: Faisal Ware MD 12/22/2023 07:59 AM EDT RP Dictated By: Faisal Ware MD CT head/brain and cervical spine wo IV con IMPRESSION: 1. No acute intracranial process seen. 2. Chronic pansinusitis. 3. Degenerative disc changes C5-6 disc level with ventral and posterior spondylosis. No visible acute fracture, dislocation or subluxation seen. Electronically signed by: Magdaleno Guy MD 12/22/2023 09:07 AM EDT RP Dictated By: Magdaleno Guy MD Independent Historian Clinical information obtained from an independent historian. History obtained from or confirmed by: EMS Chronic Conditions Patient?s care impacted by: Other (Asthma) Critical Care Time Critical Care Time Critical Care Time: Yes Total Critical Care Time: 35 Attestation: Critical Care: The patient was critically ill with a high probability of imminent or life threatening deterioration. I spent greater than 30 minutes of discontinuous time evaluating the patient,delivering critical care at the bedside, discussing and evaluating pertinent data with consultants. Critical care time does not include time spent performing separately billable procedures or teaching. Total time spent performing critical care was 35 minutes. Discharge Plan Discharge Clinical Impression: COVID-19 virus infection, Community acquired pneumonia, Syncope, Closed head injury, Contusion of jaw Patient Disposition: Admitted As Inpatient Print Language: Trinidadian
[2023-12-22] MEDS: ondansetron HCL 4 MG/2 ML VIAL IVPUSH (08:07)
[2023-12-22] MEDS: 0.9 % Sodium Chloride 1,000 ML 999 ML IV (08:07)
[2023-12-22] MEDS: Acetaminophen 325 MG TABLET 975 MG PO (08:07)
[2023-12-22 08:31] LABS: Hematocrit 35.6 % (37.0-47.0); Mean Corpuscular HGB Conc 33.7 g/dl (31.0-35.0); Mean Corpuscular Hemoglobin 30.7 pg (27.0-33.0); Mean Platelet Volume 8.9 fL (9.4-12.3); Platelet Count 268 X10*3/uL (160-400); Red Blood Count 3.91 X10*6/uL (4.20-5.50); Red Cell Distribution Width 13.1 % (11.0-16.0)
[2023-12-22 08:44] LABS: Partial Thromboplastin Time 28.4 SEC (26.0-36.8)
[2023-12-22 08:50] LABS: Alanine Aminotransferase 20 U/L (0-31); Alkaline Phosphatase 54 U/L (39-117); Anion Gap 13 (12-20); Aspartate Amino Transferase 24 U/L (5-31); Blood Urea Nitrogen 9 mg/dL (9-16); Calcium 8.7 mg/dL (8.4-10.2); Carbon Dioxide 25 mmol/L (22-29); Chloride 100 mmol/L (96-108); Estimated Glomerular Filt Rate > 60; Glucose Random 107 mg/dL (60-115); Lipase 22 U/L (8-78); Potassium 3.9 mmol/L (3.3-5.1); Sodium 134 mmol/L (135-145); Total Protein 7.2 g/dL (6.5-8.0)
[2023-12-22] MEDS: cefTRIAXone sodium 1 GM in 0.9 % Sodium Chloride 50 ML IV (08:50)
[2023-12-22 08:53] LABS: B Type Natriuretic Peptide 103 pg/mL (<100)
[2023-12-22 08:56] LABS: Troponin-I High Sensitivity < 2.7 ng/L (<3.5-17.0)
[2023-12-22 09:06] LABS: Bilirubin Total 0.7 mg/dL (0.0-1.0)
[2023-12-22 09:08] LABS: Influenza A PCR NEGATIVE (Negative); Influenza B PCR NEGATIVE (Negative); Resp Syncy Virus RNA Qual PCR NEGATIVE (Negative); SARS COV2 PCR INHOUSE POSITIVE (Negative)
[2023-12-22 09:25] LABS: Band Neutrophils Percent 6 % (3-5); Lymphocytes Absolute Manual 0.6 X10*3/uL (1.2-4.9); Lymphocytes Percent Manual 3 % (20-40); Monocytes Absolute Manual 0.9 X10*3/uL (0.1-1.2); Monocytes Percent Manual 4 % (2-11); Neutrophils Absolute Manual 19.8 X10*3/uL (2.0-8.3); Neutrophils Percent Manual 87 % (45-73)
[2023-12-22 09:26] LABS: Platelet Estimate NORMAL (NORMAL); Platelet Morphology Comment NORMAL; RBC Morphology NORMAL; Toxic Vacuolation PRESENT
[2023-12-22 09:28] LABS: White Blood Count 21.3 X10*3/uL (4.8-10.8)
[2023-12-22] MEDS: Azithromycin 500 MG in 0.9 % Sodium Chloride 250 ML 125 MG IV (09:30)
--- NOTE | 2023-12-22 10:48 | PM.IMHP ---
History of Present Illness Date of Service: 12/22/23 Chief Complaint: syncope 83F PMH moderate persistent asthma, stage I breast cancer in remission on chronic hormonal therapy, hypertension, osteoporosis presented with syncope. Patient states she has been feeling unwell for about 1 week prior to presentation, experiencing cough, fevers, fatigue, shortness of breath worse on exertion. Was initially prescribed prednisone and azithromycin but has not started it and told not to take after being diagnosed with COVID on 12/20/2023. At 06:00 on day of presentation patient went to the bathroom and suddenly felt very woozy, almost losing consciousness, fell to the ground, partially aided by grabbing onto towel handlebar, reports low-impact head strike, denies full loss of consciousness, initially felt she would take it easy but then had 2 episodes of loose stool and felt very poor so called EMS. In ED, noted to have leukocytosis of 21, primarily neutrophils, trauma workup negative, chest x-ray with streaky opacity in the right lung base. Review of Systems Review of Systems: Yes all other systems are reviewed and are negative [facility] Medical History Cataracts, bilateral Osteoporosis Breast cancer, left Family History Father Parkinson disease Surgical History Hx of cataract extraction H/O: H/O lumpectomy Social History Household Members: None Housing: House Are you a primary child care center assistant director to a significant other at home: No Do you presently have visiting nurse or other home services: No Alcohol intake: current Alcohol intake frequency: a few times a week Alcohol type: wine Patient Tobacco Use Status: Never used Tobacco Smoked in Last 30 Days: No Advance Directives: No Advance Directives Information Provided: Yes service: No Current occupational status: retired Meds Allergies Allergy/AdvReac Type Severity Reaction Status Date / Time irbesartan [IRBESARTAN] Allergy Severe rash Verified 12/22/23 07:36 lisinopril [LISINOPRIL] Allergy Intermediate COUGH, Verified 12/22/23 07:36 oral itching - rash Penicillins [PENICILLINS] Allergy Intermediate RASH Verified 12/22/23 07:36 sulfamethoxazole Allergy Intermediate RASH, FELT Verified 12/22/23 07:36 [From BACTRIM] STRANGE trimethoprim [From BACTRIM] Allergy Intermediate RASH, FELT Verified 12/22/23 07:36 STRANGE penicillin V Allergy Unknown rash Verified 12/22/23 07:36 Sulfa (Sulfonamide Allergy Unknown rash Verified 12/22/23 07:36 Antibiotics) Home Medications ?Medication ?Instructions ?Recorded ?Confirmed ?Last Taken ?Type albuterol sulfate 90 mcg/actuation 1 puff inhalation Q6H PRN 02/17/20 12/22/23 12/21/23 History aerosol inhaler (Ventolin HFA) Shortness Of Breath Or Wheezing valsartan 160 mg tablet (Diovan) 1 tab PO DAILY 02/17/20 12/22/23 12/21/23 History calcium carbonate 600 mg-vitamin 1 tab PO DAILY 02/20/22 12/22/23 12/21/23 History D3 10 mcg (400 unit) tablet fluticasone furoate 200 1 inh inhalation DAILY 12/22/23 12/22/23 12/21/23 History mcg/actuation blister powder for inhalation (Arnuity Ellipta) Physical Exam Vital Signs and Narrative: Vital Signs: Last Vital Signs Temp 99.2 F 12/22/23 09:30 Pulse 90 12/22/23 09:30 Resp 18 12/22/23 09:30 BP 127/54 L 12/22/23 09:30 Pulse Ox 98 12/22/23 08:34 O2 Del Method Room Air 12/22/23 08:34 BMI result Body Mass Index 18.5 General: AO X 3, no acute distress, frail appearing Resp: diminished bilateral, no accessory muscles used CVS: S1,S2,RRR GI: soft, non tender, non distended Neuro: motor grossly intact, alert Psych: appropriate affect, appropriate insight Results Labs 12/22/23 08:25 12/22/23 08:24 Labs: Laboratory Results - last 24 hr 12/22/23 12/22/23 08:24 08:25 MCV 91.0 MCH 30.7 MCHC 33.7 RDW 13.1 Plt Count 268 MPV 8.9 L Immature Gran % (Auto) Cancelled Neut % (Auto) Cancelled Lymph % (Auto) Cancelled [place] % (Auto) Cancelled Eos % (Auto) Cancelled Baso % (Auto) Cancelled Lymph # (Auto) Cancelled [place] # (Auto) Cancelled Eos # (Auto) Cancelled Baso # (Auto) Cancelled Abs Immat Gran (auto) Cancelled Absolute Neuts (auto) Cancelled Absolute Nucleated RBC 0.000 Nucleated RBC % (auto) 0.0 Neutrophils % (Manual) 87 H Band Neutrophils % 6 H Lymphocytes % (Manual) 3 L Monocytes % (Manual) 4 Abs Neuts (Manual) 19.8 H Lymphocytes # (Manual) 0.6 L Monocytes # (Manual) 0.9 Toxic Vacuolation PRESENT Platelet Estimate NORMAL Plt Morphology Comment NORMAL RBC Morphology NORMAL APTT 28.4 Anion Gap 13 Estim Creat Clear Calc 44.0 Estimated GFR > 60 Random Glucose 107 Lactic Acid 1.0 Calcium 8.7 D Magnesium 2.0 Total Bilirubin 0.7 AST 24 ALT 20 Alkaline Phosphatase 54 Troponin I High Sens < 2.7 B-Natriuretic Peptide 103 H Total Protein 7.2 Albumin 4.0 Lipase 22 Influenza Type A (PCR) NEGATIVE Influenza Type B (PCR) NEGATIVE RSV RNA Qual (PCR) NEGATIVE SARS-CoV-2 RNA (RT-PCR) POSITIVE A Imaging Radiologist's Impressions: Impressions Cervical Spine CT 12/22/23 07:41 IMPRESSION: 1. No acute intracranial process seen. 2. Chronic pansinusitis. 3. Degenerative disc changes C5-6 disc level with ventral and posterior spondylosis. No visible acute fracture, dislocation or subluxation seen. Electronically signed by: Magdaleno Guy MD 12/22/2023 09:07 AM EDT [facility] Chest X-Ray 12/22/23 07:50 IMPRESSION: Streaky opacity in the right lung base may represent atelectasis versus developing infiltrate. Electronically signed by: Faisal Ware MD 12/22/2023 07:59 AM EDT [facility] Head CT 12/22/23 08:28 IMPRESSION: 1. No acute intracranial process seen. 2. Chronic pansinusitis. 3. Degenerative disc changes C5-6 disc level with ventral and posterior spondylosis. No visible acute fracture, dislocation or subluxation seen. 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 intake Hypertension Holding valsartan for low normal blood pressures DVT prophylaxis with Lovenox DNR/DNI Patient with sepsis due to COVID plus minus pneumonia significant enough to cause syncope, at risk for further decompensation due to advanced age and low BMI, expected require at least 2 midnights inpatient Quality Stroke Does the patient have a stroke diagnosis?: No VTE Prior VTE?: No VTE Risk Level:: Medical - moderate - high VTE Device Contraindication: Treatment Not Indicated VTE Drug Contraindication: N/A - Med Ordered
[2023-12-22 10:49] LABS: Appearance Urine Clear; Color Urine Yellow; Glucose Urine UA Negative (Negative); Leukocyte Esterase Urine Negative (Negative); Nitrite Urine Negative (Negative); Specific Gravity - Urine 1.015 (1.005-1.025); Urine Blood Negative (Negative); Urine Ketones 15 mg/dL (Negative); Urine Protein Negative (Neg-Trace)
--- NOTE | 2023-12-22 10:50 | PHA.MEDREC ---
Pharmacy Consult ? Medication Reconciliation Pharmacy has completed the medication reconciliation. Spoke with patient to confirm medications. She last took all of her medications yesterday. She was prescribed an antibiotic and a steroid but never started them due to COVID test coming back positive.
--- NOTE | 2023-12-22 10:56 | PC.NURSE ---
Pt ambulated to BR with steady gait. 1 staff assist.
[2023-12-22] MEDS: Albuterol/Iprat 2.5/0.5MG 3 ML AMPUL.NEB INHALE ×3 (11:49→18:45)
--- NOTE | 2023-12-22 12:41 | PC.NURSE ---
resting quietly. NAD. awaits room assignemnt.
--- NOTE | 2023-12-22 13:42 | PC.NURSE ---
resting quietly. NAD
--- NOTE | 2023-12-22 15:11 | MHC.EDTECH ---
patient ambulated to the restroom to attempt to provide a stool sample. Patient stated it was just gas. Assisted patient back to room. Patient ambulated well with steady gait and did not seem SOB.
--- NOTE | 2023-12-22 16:52 | PC.NURSE ---
in a hospital bed. feels more comfortable. PO fluids to bedside. NAD.
[2023-12-22] MEDS: Acetaminophen 325 MG TABLET 650 MG PO (22:42)
[2023-12-23] VITALS (10 sets, daily range): BP systolic 117–128; BP diastolic 56–61; PULSE 83–101; RESP 12–20; TEMP 36.2–36.8; O2SAT 94–99
[2023-12-23 06:43] LABS: Alanine Aminotransferase 13 U/L (0-31); Alkaline Phosphatase 41 U/L (39-117); Anion Gap 8 (12-20); Aspartate Amino Transferase 15 U/L (5-31); Bilirubin Direct 0.2 mg/dL (0.0-0.5); Bilirubin Total 0.5 mg/dL (0.0-1.0); Blood Urea Nitrogen 6 mg/dL (9-16); Calcium 8.2 mg/dL (8.4-10.2); Carbon Dioxide 25 mmol/L (22-29); Chloride 106 mmol/L (96-108); Creatinine Clr Calc Pharmacy 50.7; Estimated Glomerular Filt Rate > 60; Glucose Fasting 93 mg/dL (60-99); Magnesium 2.1 mg/dL (1.6-2.6); Potassium 3.7 mmol/L (3.3-5.1); Sodium 135 mmol/L (135-145); Total Protein 5.4 g/dL (6.5-8.0)
[2023-12-23 06:55] LABS: Hematocrit 27.4 % (37.0-47.0); Hemoglobin 9.2 g/dl (12.0-16.0); Mean Corpuscular HGB Conc 33.6 g/dl (31.0-35.0); Mean Corpuscular Hemoglobin 30.6 pg (27.0-33.0); Mean Platelet Volume 9.5 fL (9.4-12.3); Platelet Count 219 X10*3/uL (160-400); Red Blood Count 3.01 X10*6/uL (4.20-5.50); Red Cell Distribution Width 13.1 % (11.0-16.0); White Blood Count 18.2 X10*3/uL (4.8-10.8)
[2023-12-23] MEDS: Albuterol/Iprat 2.5/0.5MG 3 ML AMPUL.NEB INHALE ×4 (08:38→20:22)
[2023-12-23] MEDS: predniSONE 20 MG TABLET 40 MG PO (09:01)
[2023-12-23] MEDS: Calcium + Vitamin D 250 MG TABLET PO (09:01)
[2023-12-23] MEDS: 0.9 % Sodium Chloride Flush 3 ML SYRINGE IVFLUSH ×2 (09:01→20:13)
[2023-12-23] MEDS: Enoxaparin Sodium 30 MG/0.3 ML SYRINGE SUBCUT (09:45)
--- NOTE | 2023-12-23 10:07 | HO.PM.IMPN ---
Subjective Subjective Date of Service: 12/23/23 Interval History: diarrhea improved Physical Exam Vital Signs: Vital Signs: Last Vital Signs Temp 97.1 F 12/23/23 07:58 Pulse 87 12/23/23 08:40 Resp 18 12/23/23 08:40 BP 117/56 L 12/23/23 08:00 Pulse Ox 96 12/23/23 07:58 O2 Del Method Aerosol Mask 12/23/23 07:58 O2 Flow Rate 2 12/23/23 07:58 BMI result Body Mass Index 18.5 General: AO X 3, no acute distress Resp: CTA bilateral, no accessory muscles used CVS: S1,S2,RRR GI: soft, non tender, non distended Neuro: motor grossly intact, alert Psych: appropriate affect, appropriate insight Objective Data Active Medications Acetaminophen (Acetaminophen 325 Mg Tablet) 650 mg PO Q6H PRN PRN Reason: Pain, Mild (Pain Scale 1-3), fever or headache Last Admin: 12/22/23 22:42 Dose: 650 mg Documented By: RENNY Albuterol/Ipratropium (Albuterol/Iprat 2.5/0.5mg 3 Ml Ampul.Neb) 3 ml INHALE RQ4H WHILE AWAKE [facility] Last Admin: 12/23/23 08:38 Dose: 3 ml Documented By: GRIS Azithromycin (Azithromycin 500 Mg Tablet) 500 mg PO Q24H [facility] Calcium Carbonate (Calcium Carbonate 750 Mg Tab.Chew) 750 mg PO Q4H PRN PRN Reason: Heartburn Calcium Carbonate/Cholecalciferol (Calcium + Vitamin D 250 Mg Tablet) 250 mg PO DAILY [facility] Last Admin: 12/23/23 09:01 Dose: 250 mg Documented By: GWEN Enoxaparin Sodium (Enoxaparin Sodium 30 Mg/0.3 Ml Syringe) 30 mg SUBCUT Q24H [facility] Last Admin: 12/23/23 09:45 Dose: 30 mg Documented By: GWEN Ceftriaxone Sodium 1 gm/ (Sodium Chloride) 50 mls @ 100 mls/hr IV Q24H [facility] Magnesium Hydroxide (Milk Of Magnesia 30 Ml Oral.Susp) 30 ml PO DAILY PRN PRN Reason: Constipation Melatonin (Melatonin 3 Mg Tablet) 6 mg PO BEDTIME PRN PRN Reason: Insomnia Prednisone (Prednisone 20 Mg Tablet) 40 mg PO DAILY [facility] Last Admin: 12/23/23 09:01 Dose: 40 mg Documented By: GWEN Sodium Chloride (0.9 % Sodium Chloride Flush 3 Ml Syringe) 3 ml IVFLUSH QSHIFT [facility] Last Admin: 12/23/23 09:01 Dose: 3 ml Documented By: GWEN Labs 12/23/23 06:08 12/23/23 06:08 Labs: Laboratory Results - last 24 hr 12/22/23 12/23/23 10:32 06:08 MCV 91.0 MCH 30.6 MCHC 33.6 RDW 13.1 Plt Count 219 MPV 9.5 Absolute Nucleated RBC 0.000 Nucleated RBC % (auto) 0.0 Anion Gap 8 L Estim Creat Clear Calc 50.7 Estimated GFR > 60 Fasting Glucose 93 Calcium 8.2 L Magnesium 2.1 Total Bilirubin 0.5 Direct Bilirubin 0.2 AST 15 ALT 13 Alkaline Phosphatase 41 Total Protein 5.4 L Albumin 3.0 L Urine Color Yellow Urine Appearance Clear Urine pH 7.0 Ur Specific [place] 1.015 Urine Protein Negative Urine Glucose (UA) Negative Urine Ketones 15 Urine Blood Negative Urine Nitrite Negative Ur Leukocyte Esterase Negative Assessment and Plan (1) Syncope: Status: Acute Plan 83F PMH moderate persistent asthma, stage I breast cancer in remission on chronic hormonal therapy, hypertension, osteoporosis presented with syncope Syncope Suspect vasovagal versus orthostasis in patient with diarrhea and COVID Monitor on telemetry - no events Monitor orthostatics Hold valsartan diarrhea resolved Sepsis (leukocytosis, tachycardia) due to COVID-19 with possible bacterial superinfection pneumonia complicated by moderate persistent asthma with acute decompensation Ceftriaxone, azithromycin, prednisone, DuoNebs, follow-up cultures History of breast cancer Continue raloxifene Osteoporosis Continue calcium and vitamin-D Mild protein calorie malnutrition Encourage p.o. intake Hypertension Holding valsartan for low normal blood pressures DVT prophylaxis with Lovenox DNR/DNI reason for continued hospitalization:awaiting cultures Quality Stroke Does the patient have a stroke diagnosis?: No VTE Prior VTE?: No VTE Risk Level:: Medical - moderate - high VTE Device Contraindication: Treatment Not Indicated VTE Drug Contraindication: N/A - Med Ordered
[2023-12-23] MEDS: cefTRIAXone sodium 1 GM in 0.9 % Sodium Chloride 50 ML IV (10:54)
[2023-12-23] MEDS: Azithromycin 500 MG TABLET PO (10:59)
--- NOTE | 2023-12-23 16:06 | MHC.CM.PN ---
PT ADMITTED WITH COVID, WADE ATTEMPTED TO CONTACT HER AT THE CELL NUMBER LISTED AND HER ROOM PHONE, LEFT CM CALLED PTS SON, CHARLIE [phone], HE CONFIRMS PT LIVES ALONE AND IS INDEPENDENT WITH CARE SHE HAD NO SERVICES AND NO DME [employer] HE SAYS SHE HAS A HCP THAT SHOULD BE ON FILE WITH HER PCP PCP: DR HUNTER IMM DELIVERED DCP TBD PENDING RECOVERY AND PT EVAL TRANSPORT TBD
[2023-12-24] VITALS (8 sets, daily range): BP systolic 116–163; BP diastolic 65–95; PULSE 95–104; RESP 16–18; TEMP 36.3–36.9; O2SAT 95–99
[2023-12-24 07:03] LABS: Anion Gap 13 (12-20); Blood Urea Nitrogen 7 mg/dL (9-16); Calcium 8.8 mg/dL (8.4-10.2); Carbon Dioxide 24 mmol/L (22-29); Chloride 101 mmol/L (96-108); Creatinine Clr Calc Pharmacy 48.3; Estimated Glomerular Filt Rate > 60; Glucose Fasting 93 mg/dL (60-99); Potassium 3.9 mmol/L (3.3-5.1); Sodium 134 mmol/L (135-145)
[2023-12-24 07:19] LABS: Hemoglobin 9.9 g/dl (12.0-16.0); Mean Corpuscular HGB Conc 34.1 g/dl (31.0-35.0); Mean Corpuscular Hemoglobin 30.8 pg (27.0-33.0); Mean Corpuscular Volume 90.3 fL (80.0-98.0); Mean Platelet Volume 9.6 fL (9.4-12.3); Platelet Count 293 X10*3/uL (160-400); Red Blood Count 3.21 X10*6/uL (4.20-5.50); White Blood Count 19.5 X10*3/uL (4.8-10.8)
[2023-12-24] MEDS: Fluticasone Propionate 250 MCG BLST.W.DEV 1 PUFF INHALE (08:16)
[2023-12-24] MEDS: Albuterol/Iprat 2.5/0.5MG 3 ML AMPUL.NEB INHALE ×3 (08:16→15:38)
[2023-12-24] MEDS: Calcium + Vitamin D 250 MG TABLET PO (08:34)
[2023-12-24] MEDS: predniSONE 20 MG TABLET 40 MG PO (08:35)
[2023-12-24] MEDS: Enoxaparin Sodium 30 MG/0.3 ML SYRINGE SUBCUT (08:35)
[2023-12-24] MEDS: 0.9 % Sodium Chloride Flush 3 ML SYRINGE IVFLUSH (08:36)
--- NOTE | 2023-12-24 08:54 | PM.DS ---
DS: Providers Provider Date of Service: 12/24/23 Date of admission: 12/22/23 10:47 Date of discharge: 12/24/23 Primary care physician: Daniel Francois MD DS: Diagnosis Discharge Diagnosis (1) Syncope: Status: Acute DS: Summary Hospital Course Hospital Course: from initial hpi: 83F PMH moderate persistent asthma, stage I breast cancer in remission on chronic hormonal therapy, hypertension, osteoporosis presented with syncope. Patient states she has been feeling unwell for about 1 week prior to presentation, experiencing cough, fevers, fatigue, shortness of breath worse on exertion. Was initially prescribed prednisone and azithromycin but has not started it and told not to take after being diagnosed with COVID on 12/20/2023. At 06:00 on day of presentation patient went to the bathroom and suddenly felt very woozy, almost losing consciousness, fell to the ground, partially aided by grabbing onto towel handlebar, reports low-impact head strike, denies full loss of consciousness, initially felt she would take it easy but then had 2 episodes of loose stool and felt very poor so called EMS. In ED, noted to have leukocytosis of 21, primarily neutrophils, trauma workup negative, chest x-ray with streaky opacity in the right lung base. hospital course: Patient was admitted for syncope possible vasovagal versus orthostatic hypotension in patient with diarrhea and COVID. She had no events on telemetry and blood pressure returned to baseline. Valsartan has been held during hospitalization but can be restarted on discharge. Patient's diarrhea resolved. For sepsis due to COVID-19 and possible bacterial pneumonia superinfection complicated by moderate persistent asthma with acute decompensation patient was treated with ceftriaxone azithromycin, prednisone, DuoNebs. Cultures remained negative. Will be discharged home on 3 more days of cefuroxime and azithromycin and 5 more days of prednisone. For history of breast cancer we will continue with raloxifene. For osteoporosis continued on calcium and vitamin-D. For mild protein calorie malnutrition p.o. intake is encouraged. For history of hypertension valsartan was held as mentioned and can be restarted on discharge. Time Attestation Discharge Coordination Time (in mins): 37 Quality: Safe Use of Opioids Does Pt have an Active Cancer Diagnosis on the Problem List?: No Quality: Stroke Does the patient have a stroke diagnosis?: No Physical Exam Vital Signs: Vital Signs: Last Vital Signs Temp 97.3 F 12/24/23 08:00 Pulse 96 12/24/23 08:18 Resp 18 12/24/23 08:18 BP 163/73 H 12/24/23 08:05 Pulse Ox 96 12/24/23 08:00 O2 Del Method Room Air 12/24/23 08:00 O2 Flow Rate 2 12/23/23 07:58 BMI result Body Mass Index 18.5 General: AO X 3, no acute distress Resp: CTA bilateral, no accessory muscles used CVS: S1,S2,RRR GI: soft, non tender, non distended Neuro: motor grossly intact, alert Psych: appropriate affect, appropriate insight DS: Data Data Completed and Pending Labs on day of discharge: Laboratory Results - last 24 hr 12/24/23 06:16 WBC 19.5 H RBC 3.21 L Hgb 9.9 L Hct 29.0 L MCV 90.3 MCH 30.8 MCHC 34.1 RDW 13.0 Plt Count 293 D MPV 9.6 Absolute Nucleated RBC 0.000 Nucleated RBC % (auto) 0.0 Sodium 134 L Potassium 3.9 Chloride 101 Carbon Dioxide 24 Anion Gap 13 BUN 7 L Creatinine 0.63 Estim Creat Clear Calc 48.3 Estimated GFR > 60 Fasting Glucose 93 Calcium 8.8 D Preliminary micro results at discharge 12/22/23 08:24 Blood Culture - Preliminary Blood - Venous No growth after 24 hours. 12/22/23 08:25 Blood Culture - Preliminary Blood - Venous No growth after 24 hours. Discharge Plan Discharge Anticipated Discharge Date/Time: 12/24/23 08:52 Patient Disposition: Home Health Service Discharge Diagnosis: COVID, pneumonia, syncope Referrals: Daniel Francois MD [Primary Care Provider] - 1 Week Discharge Medications: New azithromycin 500 mg Tablet 500 mg PO Q24H Qty: 3 0RF cefuroxime axetil 500 mg tablet 500 mg PO BID Qty: 6 0RF prednisone 20 mg tablet 40 mg PO DAILY Qty: 10 0RF Continued albuterol sulfate [Ventolin HFA] 90 mcg/actuation Hfa Aerosol Inhaler 1 puff INHALATION Q6H PRN (Reason: Shortness Of Breath Or Wheezing) valsartan [Diovan] 160 mg tablet 1 tab PO DAILY calcium carbonate-vitamin D3 600 mg-10 mcg (400 unit) Tablet 1 tab PO DAILY raloxifene 60 mg Tablet 60 mg PO DAILY Qty: 30 6RF Arnuity Ellipta 200 mcg/actuation blister with device 1 inh inhalation DAILY Discharge Orders: Discharge Order (Routine); Ordered 12/24/23 Ordered By: Stanley Dorantes Diet: Advance to usual diet Activity on Discharge: As tolerated Stand Alone Forms: Patient Portal Discharge page Print Language: Greenlandic Care Plan Goals: Recovery Health Concerns: COVID, pneumonia Plan of Treatment: Complete antibiotic course, prednisone Assessment: See above
--- NOTE | 2023-12-24 10:56 | MHC.CM.PN ---
Pt has been medically cleared for DC, she will go home via private transport, and have home care services from [facility].
[2023-12-24] MEDS: cefTRIAXone sodium 1 GM in 0.9 % Sodium Chloride 50 ML IV (11:15)
[2023-12-24] MEDS: Azithromycin 500 MG TABLET PO (11:15)
--- NOTE | 2023-12-24 14:09 | P.F2F_ITS ---
Service Date Service Date: 12/24/23 Encounter Date of encounter: 12/24/23 Reasons for Services Signs and symptoms assessed: weakness Reason for retirement: medication management, medication treatment and teach disease management Homebound: Leaving the home is medically contraindicated at this time without the asist of a device and/or another person due th the listed conditions above and below. Reason homebound: unsteady gait / fall risk Certification: Based on the above findings, I certify that this patient is confined to the home and needs intermittent retirement care, physical therapy and/or speech therapy, or continues to need occupational therapy. The patient is under my care, and I have initiated the establishment of the plan of care. The patient will be followed by a physician who will periodically review the plan of care. Time Spent With Patient Time: Total time managing care of this patient today ____ minutes.
== END 2023-12-24 16:30 | disposition home health service (06) | DRG 871 ==
LOC: HO.ED 10:19 → HO.EDOVER 10:52 → HO.IMC 19:36
PROVIDERS: Admitting Provider Internal Medicine; Emergency Provider Emergency Medicine Emergency Medical Services; PCP Internal Medicine; Visit Provider Internal Medicine
DX: A41.89 Other specified sepsis (principal); J15.9 Unspecified bacterial pneumonia; U07.1 COVID-19; J45.41 Moderate persistent asthma with (acute) exacerbation; E44.1 Mild protein-calorie malnutrition; Z68.1 Body mass index [BMI] 19.9 or less, adult; S00.83XA Contusion of other part of head, initial encounter; W19.XXXA Unspecified fall, initial encounter; I95.1 Orthostatic hypotension; Z66 Do not resuscitate; M81.0 Age-related osteoporosis without current pathological fracture; C50.912 Malignant neoplasm of unspecified site of left female breast; I10 Essential (primary) hypertension; Z79.810 Long term (current) use of selective estrogen receptor modulators (SERMs); Z79.899 Other long term (current) drug therapy
CPT/HCPCS: 0241U; 36415; 70450; 71045; 72125; 80048; 80053; 80076; 81003; 83605; 83690; 83735; 83880; 84484; 85007; 85025; 85027; 85730; 87040; 93005; 94640; 99285; J0456; J0696; J1650; J2405

== ENCOUNTER → 2023-12-22 10:47 | Outpatient (BNV) | payer MEDICARE, SELFPAY | PROVIDERS: Admitting Provider Internal Medicine; Emergency Provider Emergency Medicine Emergency Medical Services; PCP Internal Medicine; Visit Provider Internal Medicine | DX: U07.1 COVID-19 (principal); A41.89 Other specified sepsis; R55 Syncope and collapse | CPT/HCPCS: 99223; 99232; 99239; G0180 ==

== ENCOUNTER 2024-01-30 09:13 | Outpatient (REF) | payer MEDICARE, SELFPAY ==
[2024-01-30 10:07] LABS: MANUAL DIFF FLAG NO
[2024-01-30 10:18] LABS: Basophils Absolute Auto 0.1 X10*3/uL (0.0-0.2); Basophils Percent Auto 1.2 % (0-2); Eosinophils Absolute Auto 0.1 X10*3/uL (0.0-0.4); Eosinophils Percent Auto 1.2 % (0-4); Hematocrit 35.5 % (37.0-47.0); Hemoglobin 11.5 g/dl (12.0-16.0); Imm Gran Abs Auto 0.03 X10*3/uL (0.00-0.03); Imm Gran Pct Auto 0.4 % (0.0-0.4); Lymphocytes Absolute Auto 1.7 X10*3/uL (1.2-4.9); Mean Corpuscular HGB Conc 32.4 g/dl (31.0-35.0); Mean Corpuscular Hemoglobin 30.1 pg (27.0-33.0); Mean Corpuscular Volume 92.9 fL (80.0-98.0); Mean Platelet Volume 9.1 fL (9.4-12.3); Monocytes Absolute Auto 0.6 X10*3/uL (0.1-1.2); Monocytes Percent Auto 7.5 % (2-11); Neutrophils Absolute Auto 4.9 x10*3/uL (2.0-8.3); Neutrophils Percent Auto 66.7 % (45-73); Platelet Count 423 X10*3/uL (160-400); Red Blood Count 3.82 X10*6/uL (4.20-5.50); White Blood Count 7.3 X10*3/uL (4.8-10.8)
[2024-01-30 11:17] LABS: Alanine Aminotransferase 24 U/L (0-31); Albumin Level 4.2 g/dL (3.5-5.0); Alkaline Phosphatase 65 U/L (39-117); Anion Gap 12 (12-20); Aspartate Amino Transferase 29 U/L (5-31); Bilirubin Total 0.6 mg/dL (0.0-1.0); Blood Urea Nitrogen 10 mg/dL (9-16); Calcium 9.2 mg/dL (8.4-10.2); Carbon Dioxide 25 mmol/L (22-29); Chloride 100 mmol/L (96-108); Cholesterol 211 mg/dL (<200); Estimated Glomerular Filt Rate > 60; Glucose Random 92 mg/dL (60-115); HDL Cholesterol 67 mg/dL (>40); LDL Cholesterol Calculated 134 mg/dL (<100); Potassium 4.2 mmol/L (3.3-5.1); Sodium 133 mmol/L (135-145); Total Protein 7.4 g/dL (6.5-8.0); Triglycerides 52 mg/dL (<150)
[2024-01-30 11:33] LABS: Ferritin 138 ng/mL (10-250)
== END 2024-01-30 09:14 | disposition home or self-care (01) ==
LOC: HO.HMGCLDS 09:13
PROVIDERS: PCP Internal Medicine; Visit Provider Internal Medicine
DX: Z13.89 Encounter for screening for other disorder (principal)
CPT/HCPCS: 36415; 80053; 80061; 82728; 85025

== ENCOUNTER 2024-01-30 12:49 | Outpatient (REF) | payer MEDICARE, SELFPAY | END 2024-01-30 12:50 | disposition home or self-care (01) | LOC: HO.HMGCX 12:49 | PROVIDERS: PCP Internal Medicine; Visit Provider Internal Medicine | DX: J18.8 Other pneumonia, unspecified organism (principal); E78.00 Pure hypercholesterolemia, unspecified; I10 Essential (primary) hypertension; D64.9 Anemia, unspecified | CPT/HCPCS: 36415; 71046; 80053; 80061; 82728; 85025 ==

== ENCOUNTER 2024-07-18 09:25 | Outpatient (REF) | payer MEDICARE, SELFPAY ==
--- NOTE | ~2024-07-18 | US_ITS ---
CLINICAL HISTORY: PAIN RIGHT LOWER AND RIGHT UPPER QUADRANT US abdomen complete Comparison: None Findings: The visualized pancreas is normal. The visualized aorta and inferior vena cava are normal caliber. The liver is normal in echotexture. Hepatic size was not measured. There is no intrahepatic bile duct dilatation. The common duct is 3 mm in diameter. The distended gallbladder is normal. There is no sonographic Armas sign. The main portal vein is antegrade. The right kidney is 9.3 cm in length. The left kidney is 9.2 cm in length. Questionable small nonobstructive left renal stone. Increased right renal cortical echogenicity. Otherwise unremarkable kidneys. Limited evaluation of the spleen measuring at least 5.8 cm in length. Visualized portion is unremarkable. No ascites. IMPRESSION: Increased right renal cortical echogenicity. Query medical renal disease. Questionable small nonobstructive left renal stone. This document has been electronically signed by: Elizabeth Torres MD on 07/21/2024 11:12:32
== END 2024-07-18 09:26 | disposition home or self-care (01) ==
LOC: HO.US 09:25
PROVIDERS: PCP Internal Medicine; Visit Provider Internal Medicine
DX: R10.9 Unspecified abdominal pain (principal)
CPT/HCPCS: 76700

== ENCOUNTER → 2024-07-18 09:28 | Outpatient (BNV) | payer MEDICARE, SELFPAY | PROVIDERS: PCP Internal Medicine; Visit Provider Radiology Diagnostic Radiology | DX: R10.11 Right upper quadrant pain (principal); R10.31 Right lower quadrant pain | CPT/HCPCS: 76700 ==

== ENCOUNTER 2024-09-08 08:56 | Outpatient (REF) | payer MEDICARE, SELFPAY ==
[2024-09-08 10:00] LABS: Anion Gap 14 (12-20); Blood Urea Nitrogen 10 mg/dL (9-16); Calcium 8.9 mg/dL (8.4-10.2); Carbon Dioxide 25 mmol/L (22-29); Chloride 99 mmol/L (96-108); Estimated Glomerular Filt Rate > 60; Glucose Random 88 mg/dL (60-115); Potassium 4.3 mmol/L (3.3-5.1); Sodium 134 mmol/L (135-145)
== END 2024-09-08 08:57 | disposition home or self-care (01) ==
LOC: HO.LAB 08:56
PROVIDERS: PCP Internal Medicine; Visit Provider Internal Medicine
DX: R10.9 Unspecified abdominal pain (principal); D72.829 Elevated white blood cell count, unspecified
CPT/HCPCS: 36415; 80048

== ENCOUNTER 2024-09-11 07:56 | Outpatient (REF) | payer MEDICARE, SELFPAY ==
--- NOTE | ~2024-09-11 | CT_ITS ---
CLINICAL HISTORY: ABD PAIN,LEUKOCYTOSIS, RLQ PAIN CT abdomen and pelvis with and without contrast Comparison: None provided Findings: No consolidation or effusion. Gallbladder not seen. No biliary ductal dilation. No focal hepatic or splenic lesions. Pancreas, adrenal glands and kidneys demonstrate no acute process. Small volume ascites. Large volume colonic stool, particularly within the distal transverse, descending colon and rectosigmoid. No pneumatosis or free intraperitoneal gas. Appendix not definitively identified. Unremarkable reproductive organs and bladder. No vascular dilation or discrete adenopathy. No acute fracture. IMPRESSION: Exam limited by noncontrast technique. Large volume stool within the left colon. No significant bowel wall thickening appreciated. Small volume ascites. This document has been electronically signed by: Gisel Corbin MD on 09/12/2024 08:49:38
[2024-09-11] MEDS: iohexoL 350 MG/ML 100 ML INFUS..BTL IV (09:02)
== END 2024-09-11 07:57 | disposition home or self-care (01) ==
LOC: HO.CT 07:56
PROVIDERS: PCP Internal Medicine; Visit Provider Internal Medicine
DX: R10.9 Unspecified abdominal pain (principal)
CPT/HCPCS: 74178; Q9967

== ENCOUNTER → 2024-09-11 07:57 | Outpatient (BNV) | payer MEDICARE, SELFPAY | PROVIDERS: PCP Internal Medicine; Visit Provider Radiology Diagnostic Radiology | DX: K56.41 Fecal impaction (principal); R18.8 Other ascites | CPT/HCPCS: 74178 ==

== ENCOUNTER 2024-10-06 13:35 | Outpatient (REF) | payer MEDICARE, SELFPAY ==
--- NOTE | ~2024-10-06 | US_ITS ---
EXAMINATION: US PELVIS TRANSABDOMINAL AND TRANSVAGINAL HISTORY: PELVIC AND PERINEAL PAIN, LOWER ABD PAIN, ABNORMAL FINDINGS COMPARISON: Correlation is made with a CT of the abdomen and pelvis with contrast dated 09/11/2024. TECHNIQUE: Transabdominal and endovaginal real-time 2D garsia-scale ultrasound was performed. FINDINGS: Uterus: The uterus is normal in size, measuring 9.2 x 1.9 x 3.2 cm. Myometrium has a normal echotexture. No fibroids are identified. Endometrium: The endometrial stripe measures 2 mm in thickness. Right ovary: The right ovary is not visualized. Left ovary: The left ovary is not visualized. Pelvic fluid: There is a moderate amount of complex fluid in the cul-de-sac. US/US pelvic and transvaginal IMPRESSION: Moderate amount of complex fluid in the cul-de-sac. The ovaries are not visualized. Electronically signed by: Faisal Lemos MD 10/06/2024 02:38 PM EDT
== END 2024-10-06 13:36 | disposition home or self-care (01) ==
LOC: HO.US 13:35
PROVIDERS: PCP Internal Medicine; Visit Provider Internal Medicine
DX: R10.2 Pelvic and perineal pain (principal); R10.30 Lower abdominal pain, unspecified; R93.89 Abnormal findings on diagnostic imaging of other specified body structures
CPT/HCPCS: 76830; 76856

== ENCOUNTER → 2024-10-06 13:37 | Outpatient (BNV) | payer MEDICARE, SELFPAY | PROVIDERS: PCP Internal Medicine; Visit Provider Radiology Diagnostic Radiology | DX: R10.2 Pelvic and perineal pain (principal); R10.30 Lower abdominal pain, unspecified | CPT/HCPCS: 76830; 76856 ==

== ENCOUNTER 2024-10-07 13:29 | Outpatient (REF) | payer MEDICARE, SELFPAY ==
[2024-10-07 13:44] LABS: MANUAL DIFF FLAG NO
[2024-10-07 14:02] LABS: Hematocrit 31.2 % (37.0-47.0); Hemoglobin 10.2 g/dl (12.0-16.0); Imm Gran Abs Auto 0.21 X10*3/uL (0.00-0.03); Imm Gran Pct Auto 1.3 % (0.0-0.4); Lymphocytes Absolute Auto 1.2 X10*3/uL (1.2-4.9); Mean Corpuscular HGB Conc 32.7 g/dl (31.0-35.0); Mean Corpuscular Hemoglobin 29.3 pg (27.0-33.0); Mean Corpuscular Volume 89.7 fL (80.0-98.0); NRBC Abs Auto 0.000 X10*3/uL (0.0-0.012); NRBC Pct Auto 0.0 /100WBC (0.0-0.2); Platelet Count 358 X10*3/uL (160-400); Red Blood Count 3.48 X10*6/uL (4.20-5.50); White Blood Count 15.6 X10*3/uL (4.8-10.8)
[2024-10-07 14:59] LABS: Alanine Aminotransferase 13 U/L (0-31); Albumin Level 4.2 g/dL (3.5-5.0); Alkaline Phosphatase 65 U/L (39-117); Anion Gap 12 (12-20); Aspartate Amino Transferase 24 U/L (5-31); Blood Urea Nitrogen 10 mg/dL (9-16); Calcium 8.7 mg/dL (8.4-10.2); Carbon Dioxide 26 mmol/L (22-29); Chloride 99 mmol/L (96-108); Estimated Glomerular Filt Rate > 60; Potassium 4.8 mmol/L (3.3-5.1); Sodium 132 mmol/L (135-145); Total Protein 7.0 g/dL (6.5-8.0)
== END 2024-10-07 13:30 | disposition home or self-care (01) ==
LOC: HO.LAB 13:29
PROVIDERS: PCP Internal Medicine; Visit Provider Internal Medicine
DX: R10.2 Pelvic and perineal pain (principal); R10.30 Lower abdominal pain, unspecified; R93.89 Abnormal findings on diagnostic imaging of other specified body structures
CPT/HCPCS: 36415; 80053; 85025; 86140

== ENCOUNTER 2024-10-09 11:09 | Outpatient (AMB) | payer MEDICARE, SELFPAY ==
[2024-10-09 11:21] VITALS: BP 110/56; PULSE 95; TEMP 36.7; O2SAT 97; BMI 16.5
--- NOTE | 2024-10-09 11:21 | MHC.OFFWIV ---
Intake Vital Signs 10/09/24 11:21 Height 5 ft 2 in Weight 90 lb BMI 16.5 BP 110/56 L Blood Pressure Location Rt brachial Position Sitting Pulse 95 Pulse Source Pulse Oximeter Temp 98.0 F Temp Source Oral Pulse Oximetry (%) 97 Oxygen Delivery Method Room Air Intake Visit Reasons: EP swollen & itchy LT eye Intake Note: presents with left eye itch, gritty feeling and swelling since last night Patient Tobacco Use Status: Never used Tobacco Allergies irbesartan (IRBESARTAN) Allergy (Severe, Verified 10/09/24 11:23) rash lisinopril (LISINOPRIL) Allergy (Intermediate, Verified 10/09/24 11:23) COUGH, oral itching - rash Penicillins (PENICILLINS) Allergy (Intermediate, Verified 10/09/24 11:23) RASH sulfamethoxazole (From BACTRIM) Allergy (Intermediate, Verified 10/09/24 11:23) RASH, FELT STRANGE trimethoprim (From BACTRIM) Allergy (Intermediate, Verified 10/09/24 11:23) RASH, FELT STRANGE penicillin V Allergy (Unknown, Verified 10/09/24 11:23) rash Sulfa (Sulfonamide Antibiotics) Allergy (Unknown, Verified 10/09/24 11:23) rash Do you need a note to return to daycare/school/sports/work: No HPI EP swollen & itchy LT eye HPI Details This is a an 84-year-old patient presents to the walk-in clinic today with an irritated left eye. She states this started last evening without any preceding incident. She states that left eye feels ?gritty with mild pain and has had some watery/mucousy discharge. She denies any vision changes or blurriness. Does not wear contact lenses. [facility] Medical History Cataracts, bilateral Osteoporosis Breast cancer, left Surgical History Hx of cataract extraction H/O: H/O lumpectomy Family History Father Parkinson disease Social History Household Members: None Housing: House Are you a primary health care manager to a significant other at home: No Do you presently have visiting nurse or other home services: No Alcohol intake: current Alcohol intake frequency: a few times a week Alcohol type: wine Patient Tobacco Use Status: Never used Tobacco service: No Current occupational status: retired Review of Systems Const All systems reviewed & are unremarkable except as noted in HPI and below Physical Exam Vital Signs: Last Vital Signs Temp 98.0 F 10/09/24 11:21 Pulse 95 10/09/24 11:21 BP 110/56 L 10/09/24 11:21 Pulse Ox 97 10/09/24 11:21 Oxygen Delivery Method Room Air 10/09/24 11:21 BMI result Body Mass Index 16.5 Const General: cooperative and no acute distress HEENT Head: Yes normal to inspection Eyes Alignment and Position: alignment normal Periorbital: periorbital findings normal Eyelids: Yes eyelids normal Corneas: corneas abnormal on the left fluorescein used and abrasion at the following clock position (small, 3 oclock) and fluorescein used Pupils: Equal, round and reactive pupils present and Pupil accommodation reflex normal EOM: EOMs intact bilaterally Direct Ophthalmoscopy: normal light reflex and no photophobia Resp Effort & Inspection: normal respiratory effort Skin General skin exam: no rashes or lesions noted Neuro Cranial nerves: Yes Equal, round and reactive pupils present Psych Appearance: grossly normal Mental Status: mental status grossly normal Speech and movement: Normal speech and movement present Office Procedures Fluorescein eye exam Details: Left eye - very small abrasion noted approx 3-oclock. Assessment & Plan Assessment & Plan (1) Corneal abrasion, left: Code(s): S05.02XA - Injury of conjunctiva and corneal abrasion without foreign body, left eye, initial encounter Qualifiers: Encounter type: initial encounter Qualified Code(s): S05.02XA - Injury of conjunctiva and corneal abrasion without foreign body, left eye, initial encounter Plan: Discussed fluorescein findings with patient. Will start her on erythromycin ointment. We reviewed use of this. 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 She verbalizes understanding and agrees to plan. Medications: New erythromycin Apply 0.5 inch to lower lid of left eye 4 times daily for 5 days 1 appl ophthalmic (eye) QID 3.5 grams 1RF 5 days S05.02XA - Injury of conjunctiva and corneal abrasion without foreign body, left eye, initial encounter Coding Level of Care Code Est Pt Level 4 (53010) Diagnoses Abrasion of left cornea, initial encounter S05.02XA Encounter type: initial encounter
== END 2024-10-09 12:21 | disposition home or self-care (01) ==
PROVIDERS: PCP Internal Medicine; Visit Provider Nurse Practitioner Family
DX: S05.02XA Injury of conjunctiva and corneal abrasion without foreign body, left eye, initial encounter (principal)

== ENCOUNTER → 2024-10-09 11:09 | Outpatient (BNVA) | payer MEDICARE, SELFPAY | PROVIDERS: PCP Internal Medicine; Visit Provider Nurse Practitioner Family | DX: S05.02XA Injury of conjunctiva and corneal abrasion without foreign body, left eye, initial encounter (principal) | CPT/HCPCS: 99212 ==

== ENCOUNTER 2024-10-21 12:54 | Outpatient (REF) | payer MEDICARE, SELFPAY | END 2024-10-21 12:55 | disposition home or self-care (01) | LOC: HO.MAMMO 12:54 | PROVIDERS: PCP Internal Medicine; Visit Provider Internal Medicine | DX: Z12.31 Encounter for screening mammogram for malignant neoplasm of breast (principal) | CPT/HCPCS: 77063; 77067 ==

== ENCOUNTER → 2024-10-21 13:15 | Outpatient (BNV) | payer MEDICARE, SELFPAY | PROVIDERS: PCP Internal Medicine; Visit Provider Internal Medicine | DX: Z12.31 Encounter for screening mammogram for malignant neoplasm of breast (principal) | CPT/HCPCS: 77063; 77067 ==

== ENCOUNTER 2025-03-10 10:21 | Outpatient (REF) | payer MEDICARE, SELFPAY ==
--- OUTSIDE RECORDS SUMMARY | 2025-03-09 15:00 | XMS_ITS | Encounter Summary ---
Author Organization [facility] Address [address] [place] [phone] Phone Care Team Providers Care Reception Centre Manager Name Role Phone Daniel Francois MD Primary Care Provider [phone] Daniel Francois MD Unavailable [phone] Elena Crane MD Unavailable [phone] Reason for Visit * Reason Comments Follow-up Encounter Details Date Type Department Care Team (Latest Contact Info) Description 03/09/2025 3:00 PM EST Office Visit [facility] Medical [facility] Internal Medicine [address] [place], [place] [phone] Daniel Francois MD [address] [place] [address] [email or web address] Carcinoma of ovary, unspecified laterality (Primary Dx); Bilateral leg edema; Benign essential hypertension Social History Tobacco Use Types Packs/Day Years Used Date Smoking Tobacco: Former Cigarettes 0.2 6.6 0 08/20/1960 - 1967 Smokeless Tobacco: Never Comments:quit 45 years ago Alcohol Use Standard Drinks/Week Comments Not Currently 0 (1 standard drink = 0.6 oz pur e alcohol) quit 2022 Education Answer Date Recorded Are you interested in more education? Not on jose miguel e 07/20/2022 Are you concerned about learning? Not on file 07/20/2022 No 07/20/2022 No 07/20/2022 Digital Access Answer Date Recorded No 08/15/2022 No 08/15/2022 Reliable internet access at home? Not on file 08/15/2022 Device with a working camera? Not on file Intimate Partner Violence Answer Date R ecorded Denied Basic Needs Not on file 01/21/2024 In the past 12 months have y ou been in a relationship with a person who hurts, threatens, or tries to control you? No 01/21/2024 Worried food would run out Not on file 01/20 In the past 12 months have y ou been in a relationship with a person who hurts, threatens, or tries to control you? No 01/21/2024 Comments Unknown Sex and Gender Information Value Date Recorded Sex Assigned at Not on file Legal Sex Female 10:11 PM EDT Gender Identity Not on file Sexual Orientation Not on file documented as of this encounter Last Filed Vital Signs Vital Sign Reading Time Taken Comments Blood Pressure 120/76 03/09/2025 3:50 PM EST Pulse 81 03/09/2025 3:08 PM EST Temperature 36.1 C (97 F) 03/09/2025 3:08 PM EST Respiratory Rate - - Oxygen Saturation 99% 03/09/2025 3:08 PM EST Inhaled Oxygen Concentration - - Weight 38.6 kg (85 lb 3.2 oz) 03/09/2025 3:08 PM EST Height 156.4 cm (5' 1.58 ) 03/09/2025 3:08 PM ES T Body Mass Index 15.8 03/09/2025 3:08 PM EST documented in this encounter Progress Notes * Daniel Francois MD - 03/09/2025 3:00 PM EST Subjective Katrina Ocampo is a 85 y.o. female. History of Present Illness Katrina Ocampo is an 85 year old female with ovarian cancer undergoing chemotherapy who presents with leg swelling. She is experiencing leg swelling, which she attributes to her chemotherapy treatment. She was previously prescribed furosemide (Lasix) to manage the swelling. Lab work done a week ago showed low sodium levels. She has not received any repeat lab results yet. She is currently undergoing chemotherapy for ovarian cancer, with her last treatment being her fourth session. She receives her chemotherapy at [facility], under the care of Dr. Beth and Dr. Crane. She is awaiting a CT scan scheduled for next week to assess the progression of her condition. She experiences some side effects from chemotherapy, including feeling 'fuzzy' or 'spacey.' No dizziness or shortness of breath. Her blood pressure readings have varied, with higher readings at her primary care visits and lower readings at [facility]. She is currently on losartan 160 mg, whichshe takes regularly. She has increased her sodium intake by consuming more salt and potato chips and reports drinking a lot of fluids. She has not been monitoring her blood pressure at home, although she owns a cuff. She sustained two skin tears from removing support stockings, which are healing. She reports a stable weight after a period of weight loss and maintains a good appetite, ensuring she does not skip meals. Current Outpatient Medications Ordered in [facility] Medication Sig albuterol 2.5 mg /3 mL (0.083 %) nebulizer solution Take 3 mL (2.5 mg total) by nebulization every 6 (six) hours as needed. albuterol 90 mcg/actuation inhaler Inhale 2 puffs into the lungs every 6 (six) hours as needed for wheezing. ARNUITY ELLIPTA 200 mcg/actuation DsDv INHALE 1 PUFF INTO THE LUNGS DAILY ascorbic acid (VITAMIN C ORAL) Take 1 tablet by mouth daily. Taken with iron calcium carbonate-vitamin D3 1,500 mg (600 mg elemental)-200 units Tab Take 1 tablet by mouth daily. ferrous sulfate 325 mg (65 mg [place] iron) tablet Take 325 mg by mouth daily. Taken with Vitamin C inhaler spacing device (AEROCHAMBER,BREATHERITE) Spcr Inhale 1 each into the lungs 4 (four) times aday. raloxifene (EVISTA) 60 mg tablet Take 60 mg by mouth daily. valsartan (DIOVAN) 160 MG tablet Take 1 tablet (160 mg total) by mouth daily. furosemide (LASIX) 20 MG tablet Take 1 tablet (20 mg total) by mouth 3 (three) times a week on Sunday, Sunday, Sunday. Review of Systems Denies chest pains/muscle aches Objective Physical Exam VITALS: BP- 120/74 CARDIOVASCULAR: Blood pressure 120/74. HEENT:PERRTL, EOM intact, fundi benign, TM's clear, throat clear. NECK: supple, no thyroid megaly, no adenopathy. LUNGS: clear to A&P,no wheezing/rhonichi/rales. HEART: RRR S1S2 without murmurs, rubs or gallops. ABDOMEN: bowel sounds: normal, soft non tender without masses. EXTREMITIES: Skin tears on extremities from support stockings. Trace edema bilaterally. Assessment & Plan Ovarian cancer Undergoing chemotherapy with side effects of lightheadedness and cognitive fogginess. Awaiting CT scan with contrast to assess treatment progress. - Continue chemotherapy as scheduled. - Await CT scan results to assess treatment progress. Bilateral leg edema secondary to chemotherapy Bilateral leg edema likely due to chemotherapy. Sodium levels low, possibly from fluid overload. Onfurosemide for edema management. Normal BNP, low sodium, no cardiac echo yet. - Ordered repeat blood work to assess sodium levels and BNP. - Adjusted furosemide to Sunday, Sunday, and Sunday dosing. - Monitor for changes in leg swelling and report if swelling increases. - Encouraged increased salt intake as advised by oncology team. Essential hypertension Blood pressure well-controlled on losartan 160 mg. Reports feeling fuzzy and spacey, no dizziness. Stable blood pressure readings. - Continue losartan 160 mg daily. - Monitor blood pressure at home and report any low readings. - Bring blood pressure cuff to next appointment for calibration. - Record blood pressure readings at chemotherapy visits and report to primary care provider. I obtained verbal consent from the patient or their proxy to record this visit for purposes of producing a draft of the encounter documentation. documented in this encounter Plan of Treatment Upcoming Encounters Date Type Department Care Team (Late st Contact Info) Description 04/01/2025 4:00 PM EST Office Visit [facility] Medical [facility] Internal Medicine [address] [place] [phone] Vicente Del Toro PA-C [address] [place] [address] [email or web address] Scheduled Orders Name Type Priority Associated Diagnoses Orde r Schedule Comprehensive Metabolic Panel (CMP) Lab Routine Bilateral leg edema Benign essential hypertension Expected: 03/09/2025, Expires: 03/09/2026 CBC and Differential Lab Routine Bilateral leg edema Benign essential hypertension Expected: 03/09/2025, Expires: 03/09/2026 NT-proBNP Lab Routine Bilateral leg edema Benign essential hypertension Expected: 03/09/2025, Expires: 03/09/2026 documented as of this encounter Visit Diagnoses Diagnosis Carcinoma of ovary, unspecified laterality- Primary Bilateral leg edema Edema Benign essential hypertension Essential hypertension, benign documented in this encounter Additional Health Concerns Assessment Noted Time PHQ-2 Depression Total Score: 0 03/02/20 25 2:29 PM EST documented as of this encounter Care Teams Reception Centre Manager Relationship Specialty Start Date End Date Daniel Francois MD [address] [place] [address] PCP - General Internal Medicine 03/27/17 Daniel Francois MD [address] [place] [address] Insurance Assigned Provider 06/30/23 Elena Crane MD [address] [place] [phone] Internal Medicine 08/22/19 documented as of this encounter Additional Source Comments The information contained in this document represents components of the legal health record. It is not the complete legal health record.[facility]
--- OUTSIDE RECORDS SUMMARY | 2025-03-10 12:59 | XMS_ITS | Encounter Summary ---
Author Organization [facility] Address [address] [place] [phone] Phone Care Team Providers Care It Consulting Director Name Role Phone Daniel Francois MD Primary Care Provider [phone] Daniel Francois MD Unavailable Elena Crane MD Unavailable [phone] Reason for Visit * Reason Onset Date Comments Results 03/03/2025 Encounter Details Date Type Department Care Team (Late st Contact Info) Description 03/03/2025 Telephone [email or web address] Internal Medicine [address], [place] [phone] Daniel Francois MD [address], [place] [phone] [email or web address] Results Social History Tobacco Use Types Packs/Day Years [...] on file documented as of this encounter Progress Notes * Ayesha Isabel RN - 03/10/2025 10:56 AM EST Letter Sent. * Ayesha Isabel RN - 03/10/2025 10:55 AM EST LVM for pt to call back. * Dora Elizabeth RN - 03/06/2025 11:23 AM EST LVM to call the office * Dora Elizabeth RN - 03/05/2025 10:31 AM EST No answer. Unable to leave a message. * Dora Elizabeth RN - 03/03/2025 8:54 AM EST LVM to call the office * Dora Elizabeth RN - 03/03/2025 8:54 AM EST Images from the original note were not included. Vicente Del Toro PA-C P [facility] Cc: Daniel Francois MD Please let the patient know that I have received her labs back. Her BNP is within normal limits. Her sodium is noted to be lower at 128 which I believe is secondary to her being fluid overloaded. We will repeat her BMP in 2 days after she has been on the Lasix for 2 days. Please follow-up with her to see how she is doing today after taking 1 tablet of the Lasix yesterday and hopefully 1 today. See if the swelling has improved documented in this encounter Plan of Treatment Upcoming Encounters Date Type Department Care Team (Late st Contact Info) Description 04/01/2025 4:00 PM EST Office Visit [facility] Internal Medicine [address], [place] [phone] Vicente Del Toro PA-C [address] [place] [address] [phone] documented as of this encounter Visit Diagnoses Not on filedocumented in this encounter Additional Health Concerns Assessment Noted Time PHQ-2 Depression Total Score: 0 03/02/20 25 2:29 PM EST documented as of this encounter Care Teams It Consulting Director Relationship Specialty Start Date End Date Daniel Francois MD [address] [place] [phone] PCP - General Internal Medicine 03/27/17 Daniel Francois MD [address] [place] [phone] Insurance Assigned Provider 06/30/23 Elena Crane MD [address] [place] [address] Internal Medicine 08/22/19 documented as of this encounter Additional Source Comments The information contained in this document represents components of the legal health record. It is not the complete legal health record.[facility]
--- OUTSIDE RECORDS SUMMARY | 2025-03-10 13:01 | XMS_ITS | Clinical Summary ---
Author Organization [facility] Address [address] [place] [phone] Phone Care Team Providers Care Net Sql Developer Name Role Phone Daniel Francois MD Primary Care Provider [phone] Daniel Francois MD Unavailable [phone] Elena Crane MD Unavailable Allergies Active Allergy Reactions Criticality Noted Date Comments Sulfamethoxazole-Trimethoprim Rash Low 2017 Irbesartan Rash High 12/12/2017 Lisinopril Cough 04/16/2017 Penicillins Rash Low 04/16/2017 Medications calcium carbonate-vitam in D3 1,500 mg (600 mg elemental)-200 units Tab Take 1 tablet by mouth daily. Active inhaler spacing device (AEROCHAMBER,BR EATHERITE) SpcrIndications :Moderate persistent asthma, unspecified whether complicated Inhale 1 each into the lungs 4 (four) times a day. 1 each 1 018 Active raloxifene (EVISTA) 60 mg tablet Take 60 mg by mouth daily. 022 Active albuterol 2.5 mg /3 mL (0.083 %) nebulizer solutionIndicat ions:Moderate persistent asthma without complication Take 3 mL (2.5 mg total) by nebulization every 6 (six) hours as needed. 360 mL 4 024 Active albuterol 90 mcg/actuation inhalerIndicati ons:Moderate persistent asthma, unspecified whether complicated Inhale 2 puffs into the lungs every 6 (six) hours as needed for wheezing. 8 g 11 024 Active ferrous sulfate 325 mg (65 mg [place] iron) tablet Take 325 mg by mouth daily. Taken with Vitamin C Active ascorbic acid (VITAMIN C ORAL) Take 1 tablet by mouth daily. Taken with iron Active ARNUITY ELLIPTA 200 mcg/actuation DsDv INHALE 1 PUFF INTO THE LUNGS DAILY 90 each 3 025 Active valsartan (DIOVAN) 160 MG tabletIndicatio ns:Benign essential hypertension Take 1 tablet (160 mg total) by mouth daily. 90 tablet 3 025 Active furosemide (LASIX) 20 MG tablet Take 1 tablet (20 mg total) by mouth 3 (three) times a week on Sunday, Sunday, Sunday. 30 tablet 2 025 Active fluticasone propionate (FLOVENT HFA) 110 mcg/actuation inhalerIndicati ons:Moderate persistent asthma, unspecified whether complicated INHALE 2 PUFFS BY MOUTH TWICE DAILY 12 g 11 022 2023 Discontinued(N o CancelRX) furosemide (LASIX) 20 MG tablet Take 1 tablet (20 mg total) by mouth daily. 30 tablet 2 025 2024 Discontinued Active Problems Problem Noted Date Diagnosed Date Malignant neoplasm of left f emale breast, unspecified estrogen receptor status, unspecified site of breast 04/02/2023 Acute upper respiratory infection 11/21/2022 Assessment & Plan (11/21/2022 1:55 PM EDT): She has aviles 4 days of congestion. Is afebrile and appears non toxic. Will enc her to continue home remedies- ( reviewed and given in AVS) requested her to get a CXR to r/o any right lung pathology given her junky cough- advised her to call for change or fever, or feeling worse- discussed importance to avoid abx with not needed to avoid adverse side effects- and tolerance- She is not on portal so will call when CXR resulted. Will ask nsg to call her Tomorrow to ensure she is improving. History of breast cancer in female 02/21/2021 Overview (12/27/2023): Saw oncology Dr. Blanca Crane- 11/22/23 see scan on tamoxifen and zometa r/t 6m Asthma 04/17/2017 Essential hypertension 04/17/2017 Hyperlipidemia 04/17/2017 Hypertension 04/17/2017 Mild persistent asthma without complication 03/27 Osteoporosis 04/17/2017 Overview (11/28/2023): Fol with Dr. Yoly Crane-test ordered by Dr. Crane bmd shows severe osteoporosis done 11/02/23 Pure hypercholesterolemia 04/17/2017 Vitamin D deficiency 04/17/2017 Encounters Date Type Department Care Team Description 03/09/2025 3:00 PM EST Office Visit [facility] Internal Medicine [address] [place] [address] Daniel Francois MD Carcinoma of ovary, unspecified laterality (Primary Dx); Bilateral leg edema; Benign essential hypertension 03/03/2025 Telephone [facility] Internal Medicine [address] [place] [address] Daniel Francois MD Results 03/02/2025 2:20 PM EST Office Visit [facility] Internal Medicine [address] [place] [address] Vicente Del Toro PA-C Bilateral leg edema (Primary Dx) 02/27/2025 Telephone [facility] Internal Medicine [address] [place] [address] Daniel Francois MD Leg Swelling; Foot Swelling 2025 Telephone [facility] Internal Medicine [address] [place] [address] Daniel Francois MD Medication Question 01/23/2025 1:00 PM EDT Office Visit [facility] Internal Medicine [address] [place] [address] Daniel Francois MD Benign essential hypertension (Primary Dx); Malignant neoplasm of ovary, unspecified laterality; Malignant neoplasm of left female breast, unspecified estrogen receptor status, unspecified site of breast 01/22/2025 Documentation [facility] Internal Medicine [address] [place] [address] Daniel Francois MD 12/29/2024 Telephone [facility] Internal Medicine [address] [facility] [place] [address] Daniel Francois MD drug change request from Last 3 Months Immunizations Immunization Administration Dates Next Due Pneumococcal conjugate PCV13 07/30/2014 Pneumococcal conjugate PCV20 07/19/2023 Pneumococcal polysaccharide PPSV23 07/23/2012,,01/24/2006 Td (adult) 5 Lf Tetanus Toxo id, PF, Adsorbed 01/24/2006 Tdap 01/24/2006 Family History Relation Status Comments Father (Age 75) parkinson and pneumonia Mother (Age 88) schizophrenia and cva when older Son Alive htn Social History Tobacco Use Types Packs/Day Years Used Date Smoking Tobacco: Former Cigarettes 0.2 6.6 0 08/20/1960 - 1967 Smokeless Tobacco: Never Tobacco Cessation:Counseling Given: Not Answered Comments:quit 45 years ago Alcohol Use Standard [...] on file Sexual Orientation Not on file Last Filed Vital Signs Vital Sign Reading Time Taken Comments Blood Pressure 120/76 03/09/2025 3:50 PM EST Pulse 81 03/09/2025 3:08 PM EST Temperature 36.1 C (97 F) 03/09/2025 3:08 PM EST Respiratory Rate 21 03/02/2025 2:34 PM EST Oxygen Saturation 99% 03/09/2025 3:08 PM EST Inhaled Oxygen Concentration - - Weight 38.6 kg (85 lb 3.2 oz) 03/09/2025 3:08 PM EST Height 156.4 cm (5' 1.58 ) 03/09/2025 3:08 PM ES T Body Mass Index 15.8 03/09/2025 3:08 PM EST Plan of Treatment Upcoming Encounters Date Type Department Care Team (Late st Contact Info) Description 04/01/2025 4:00 PM EST Office Visit [facility] Internal Medicine [address] [place] [address] Vicente Del Toro PA-C [address] [place] [address] [email or web address] Health Maintenance Due Date Last Done Comments ZOSTER VACCINES (1 of 2) 02/07/1960 Adult Td,Tdap Booster 01/25/2016 01/24/2006, 006 RSV VACCINE (1 - 1-dose 75+ series) 02/07/2016 INFLUENZA VACCINE (#1) 2024 COVID-19 VACCINE ( - 2024- season) 2024 BLOOD PRESSURE 09/07/2025 03/09/2025 FOLLOW UP BONE DENSITY TESTING 11/01/2025 11/02/2023, 10/05/2021, 10/17/2016 CREATININE LEVEL 03/02/2026 03/02/2025, , 10/05/2024, Additional history exists DEPRESSION SCREENING 03/02/2026 03/02/2025 POTASSIUM LEVEL 03/02/2026 03/02/2025, 09/23, 09/08/2024, Additional history exists PNEUMOCOCCAL VACCINES (50+ years) Completed 07/19/2023, 07/30/2014, 07/23/2012, Additional history exists OSTEOPOROSIS SCREENING INITIAL (ONE-TIME) Completed 11/02/2023, 10/05/2021, 10/17/2016 HEPATITIS A VACCINES Aged Out No long er eligible based on patient's age to complete this topic HIB VACCINES Aged Out No longer eligi ble based on patient's age to complete this topic MENINGOCOCCAL VACCINES (ACWY) Aged Out No longer eligible based on patient's age to complete this topic MENINGOCOCCAL VACCINES (B) Aged Out N o longer eligible based on patient's age to complete this topic Medical Devices Not on file Procedures Procedure Name Priority Date/Time Associated Diagnosis Comments NT-PROBNP Routine 03/02/2025 3:12 PM EST Bilateral leg edema COMPREHENSIVE METABOLIC PANEL (CMP) Routine 03/02/2025 3:12 PM EST Bilateral leg edema HM DEXA SCAN Routine 11/02/2023 12:37 PM EDT from Last 3 Months or Most Recently Relevant to Health Maintenance Results * (ABNORMAL) Comprehensive Metabolic Panel (CMP) (03/02/2025 3:12 PM EST) Sodium 128(L) 136 - 145 mmol/L 03/02/2025 9:21 PM [facility] Potassium 4.7 3.4 - 5.1 mmol/L 03/02/2025 9:21 PM [facility] Chloride 92(L) 98 - 107 mmol/L 03/02/2025 9:21 PM [facility] CO2 25 20 - 31 mmol/L 03/02/2025 9:21 PM [facility] BUN 11 6 - 23 mg/dL 03/02/2025 9:21 PM [facility] Creatinine 0.60 0.50 - 1.00 mg/dL 03/02/2025 9:21 PM [facility] Glucose 112(H) 70 - 99 mg/dL 03/02/2025 9:21 PM [facility] Calcium 9.6 8.5 - 10.5 mg/dL 03/02/2025 9:21 PM [facility] AST 31 <33 U/L 03/02/2025 9:21 PM [facility] ALT 17 <34 U/L 03/02/2025 9:21 PM [facility] Alkaline Phosphatase 59 40 - 130 U/L 03/02/2025 9:21 PM [facility] Bilirubin, Total 0.8 0.0 - 1.2 mg/dL 03/02/2025 9:21 PM [facility] Total Protein 8.2 6.4 - 8.3 g/dL 03/02/2025 9:21 PM [facility] Albumin 4.7 3.5 - 5.2 g/dL 03/02/2025 9:21 PM [facility] Globulin 3.5 1.9 - 4.1 g/dL 03/02/2025 9:21 PM [facility] eGFR 88 >59 mL/min/1.7 3m2 03/02/2025 9:21 PM [facility] Comment:Estimated glomerular filtration rate calculated using the CKD-EPI refit equation. Anion Gap 11 3 - 17 mmol/L 03/02/2025 9:21 PM [facility] Blood (Blood) Venipuncture / Unknown 03/02/2025 3:12 PM EST 03/02/2025 3:12 PM EST us Vicente Del Toro PA-C LAB BLOOD BKR ORDERABLES Antonia l Result [address] [address] * NT-proBNP (03/02/2025 3:12 PM EST) NT-ProBNP 672 0 - 1,800 pg/mL 03/02/2025 9:21 PM [facility] Comment: Age <50 years: 0-450 pg/ml Age 50-75 years: 0-900 pg/ml Age >75 years: 0-1800 pg/ml A NT-proBNP <300 pg/ml effectively rules out acute congestive heart failure, with 99% negative predictive value. NT-proBNP cutoffs were developed for the diagnosis of heart failure. Marked elevations in NT-proBNP levels may be observed in states other than left ventricular congestive heart failure. Falsely low NT-proBNP in congestive heart failure patients may be observed with increasing body-mass index. Blood (Blood) Venipuncture / Unknown 03/02/2025 3:12 PM EST 03/02/2025 3:12 PM EST us Vicente Del Toro PA-C LAB BLOOD BKR ORDERABLES Antonia l Result [facility] [address] [place] [address] * DEXA SCAN (11/02/2023 12:37 PM EDT) us Historical Provider HEALTH MAINTENANCE Edited Result - Final from Last 3 Months or Most Recently Relevant to Health Maintenance Insurance MEDICARE PART A & B [employer] MEDEX SUPPLEMENT MEDICARE PART A & B [employer] MEDEX SUPPLEMENT MEDICARE PART A & B S[employer] MEDEX SUPPLEMENT MEDICARE PART A & B [facility] MEDEX SUPPLEMENT MEDICARE PART A & B Sqrrl MEDEX SUPPLEMENT MEDICARE PART A & B S[employer] MEDEX SUPPLEMENT MEDICARE PART A & B [employer] MEDEX SUPPLEMENT MEDICARE PART A & B [employer] MEDEX SUPPLEMENT MEDICARE PART A & B S[employer] MEDEX SUPPLEMENT Advance Directives For more information, please contact: [phone] (9AM - 5PM Val[facility], Sunday-Sunday) Documents on File Type Date Recorded Patient Dude Wrangler Expl anation Healthcare Proxy 01/21/2024 Healthcare Proxy MOLST 01/21/2024 MOLST Care Teams Net Sql Developer Relationship Specialty Start Date End Date Daniel Francois MD [address] [place] [address] [phone] [email or web address] PCP - General Internal Medicine 03/27/17 Daniel Francois MD [address] [place] [id number] [email or web address] Insurance Assigned Provider 06/30/23 Elena Crane MD [address] [place] [address] [phone] Internal Medicine 08/22/19 Additional Source Comments The information contained in this document represents components of the legal health record. It is not the complete legal health record.[facility]
[2025-03-10 14:17] LABS: MANUAL DIFF FLAG NO
[2025-03-10 14:29] LABS: Hematocrit 29.7 % (37.0-47.0); Hemoglobin 9.7 g/dl (12.0-16.0); Imm Gran Abs Auto 0.01 X10*3/uL (0.00-0.03); Imm Gran Pct Auto 0.2 % (0.0-0.4); Lymphocytes Absolute Auto 1.1 X10*3/uL (1.2-4.9); Mean Corpuscular HGB Conc 32.7 g/dl (31.0-35.0); Mean Corpuscular Hemoglobin 31.4 pg (27.0-33.0); Mean Corpuscular Volume 96.1 fL (80.0-98.0); NRBC Abs Auto 0.000 X10*3/uL (0.0-0.012); NRBC Pct Auto 0.0 /100WBC (0.0-0.2); Platelet Count 203 X10*3/uL (160-400); Red Blood Count 3.09 X10*6/uL (4.20-5.50); White Blood Count 4.1 X10*3/uL (4.8-10.8)
[2025-03-10 15:02] LABS: NT Pro B Type Natriuretic Pept 364.3 pg/mL (<300)
[2025-03-10 15:20] LABS: Alanine Aminotransferase 35 U/L (0-31); Albumin Level 4.6 g/dL (3.5-5.0); Alkaline Phosphatase 56 U/L (39-117); Anion Gap 13 (12-20); Aspartate Amino Transferase 40 U/L (5-31); Blood Urea Nitrogen 11 mg/dL (9-16); Calcium 9.1 mg/dL (8.4-10.2); Carbon Dioxide 23 mmol/L (22-29); Chloride 98 mmol/L (96-108); Estimated Glomerular Filt Rate > 60; Potassium 3.9 mmol/L (3.3-5.1); Sodium 130 mmol/L (135-145); Total Protein 7.5 g/dL (6.5-8.0)
== END 2025-03-10 10:22 | disposition home or self-care (01) ==
LOC: HO.HMGCLDS 10:21
PROVIDERS: PCP Internal Medicine; Visit Provider Internal Medicine
DX: I10 Essential (primary) hypertension (principal); R60.0 Localized edema
CPT/HCPCS: 36415; 80053; 83880; 85025

== ENCOUNTER 2025-03-17 11:19 | Outpatient (REF) | payer MEDICARE, SELFPAY ==
--- NOTE | ~2025-03-17 | CT_ITS ---
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 COMPARISON: Comparison is made with the prior examination dated 10/11/2024. TECHNIQUE: CT scan of the abdomen and pelvis was performed following administration of 85 mL Omnipaque 350 using standard departmental protocol. Coronal and sagittal reformatted images were generated and reviewed. The patient received oral contrast material. This CT exam was performed with one or more of the following dose reduction techniques: automated exposure control, adjustment of the mA and/or kV according to patient size, use of iterative reconstruction technique. DLP: 160 mGy-cm FINDINGS: LOWER CHEST: The visualized lung bases are clear. There is no pleural effusion. CARDIOVASCULATURE: The heart is normal in size. There is no pericardial effusion. LIVER: The liver is normal in size and contour. No liver mass is identified. The hepatic and portal veins are patent. GALLBLADDER / BILE DUCTS: The gallbladder is unremarkable. There is no intra or extrahepatic biliary ductal dilatation. SPLEEN: The spleen is normal in size. No focal splenic lesion is identified. PANCREAS: The pancreas is unremarkable in appearance. ADRENAL GLANDS: Within normal limits. KIDNEYS/RETROPERITONEUM: No renal calculi are identified. There is no hydronephrosis. No renal masses are identified. LYMPH NODES: No abdominal or pelvic lymphadenopathy. VASCULATURE: The abdominal aorta demonstrates atherosclerotic calcification, but is normal in caliber. MESENTERY/PERITONEUM: No free fluid. No masses. There is no free intraperitoneal gas. STOMACH: There is a small hiatal hernia. The remainder the stomach is collapsed. SMALL BOWEL: The small bowel is normal in caliber. COLON: There is a large amount of gas and stool throughout the colon. APPENDIX: The appendix is not seen, however no inflammatory changes are seen adjacent to the cecum. URINARY BLADDER/PELVIC ORGANS: The urinary bladder is unremarkable. The uterus is atrophic, consistent with the patient's age. BONES / SOFT TISSUES: The bones are osteopenic. CT/CT abdomen pelvis w IV con IMPRESSION: No evidence of metastatic disease. Electronically signed by: Faisal Lemos MD 03/17/2025 02:16 PM [facility]
--- OUTSIDE RECORDS SUMMARY | 2025-03-17 12:42 | XMS_ITS | Encounter Summary ---
Author Organization [facility] Address [address] [address] Phone Care Team Providers Care Education Site Manager Name Role Phone Daniel Francois MD Primary Care Provider [phone] Daniel Francois MD Unavailable [phone] Elena Crane MD Unavailable Encounter Details Date Type Department Care Team (Late st Contact Info) Description 03/11/[address] [facility] [address] [place] [address] Provider, MD [address] [place] [address] Social History Tobacco Use Types Packs/Day Years [...] on file documented as of this encounter Plan of Treatment Upcoming Encounters Date Type Department Care Team (Late st Contact Info) Description 04/01/2025 4:00 PM EST Office Visit [facility] [address] [place], [place] [phone] Vicente Del Toro PA-C [address] [place], [place] [phone] documented as of this encounter Procedures Procedure Name Priority Date/Time Associated Diagnosis Comments OUTSIDE LAB Routine 03/11/2025 9:09 AM EST OUTSIDE LAB Routine 03/10/2025 3:55 PM EST documented in this encounter Results * Outside Lab (Non-MGB) (03/11/2025 9:09 AM EST) Historical Provider LAB BLOOD BKR ORDERABLES Final Result * Outside Lab (Non-MGB) (03/10/2025 3:55 PM EST) Historical Provider LAB BLOOD BKR ORDERABLES Final Result documented in this encounter Visit Diagnoses Not on filedocumented in this encounter Additional Health Concerns Assessment Noted Time PHQ-2 Depression Total Score: 0 03/02/20 25 2:29 PM EST documented as of this encounter Care Teams Education Site Manager Relationship Specialty Start Date End Date Daniel Francois MD [address] [place] [address] PCP - General Internal Medicine 1/2/18 Daniel Francois MD [address] [place] [address] [email or web address] Insurance Assigned Provider 06/30/23 Elena Crane MD [address] [place] [address] Internal Medicine 08/22/19 documented as of this encounter Additional Source Comments The information contained in this document represents components of the legal health record. It is not the complete legal health record.[facility]
--- OUTSIDE RECORDS SUMMARY | 2025-03-17 12:42 | XMS_ITS | Encounter Summary ---
Author Organization [facility] Address [address] [place] [address] Phone Care Team Providers Care Clinical Assoc Name Role Phone Daniel Francois MD Primary Care Provider [phone] Daniel Francois MD Unavailable Elena Crane MD Unavailable [phone] Reason for Visit * Reason Onset Date Comments Results 03/12/2025 Encounter Details Date Type Department Care Team (Late st Contact Info) Description 03/12/2025 Telephone [facility] [address] [place], [place] [phone] Daniel Francois MD [address] [place], [place] [phone] [email or web address] Results Social History Tobacco Use Types Packs/Day [...] as of this encounter Progress Notes * Dora Elizabeth RN - 03/12/2025 8:37 AM EST Spoke to Meena and advised. [place] [facility] [place] Mailed lab order as requested. * Dora Elizabeth RN - 03/12/2025 8:36 AM EST Images from the original note were not included. Daniel Francois MD P g Zachery [place] Rn Sodium is a little better at 130. BUN and creatinine are normal. White count, hemoglobin and hematocrit are low probably because of chemotherapy. AST and ALT borderline elevated which is nonspecific. I will order comprehensive metabolic panel to be done April 02. documented in this encounter Plan of Treatment Upcoming Encounters Date Type Department Care Team (Late st Contact Info) Description 04/01/2025 4:00 PM EST Office Visit [facility] [address] [place], [place] [phone] Vicente Del Toro PA-C [address] [place] [address] [email or web address] documented as of this encounter Visit Diagnoses Not on filedocumented in this encounter Additional Health Concerns Assessment Noted Time PHQ-2 Depression Total Score: 0 03/02/20 25 2:29 PM EST documented as of this encounter Care Teams Clinical Assoc Relationship Specialty Start Date End Date Daniel Francois MD [address] [place] [address] PCP - General Internal Medicine 03/27/17 Daniel Francois MD [address] [place] [address] Insurance Assigned Provider 06/30/23 Elena Crane MD [address] [place] [address] Internal Medicine 08/22/19 documented as of this encounter Additional Source Comments The information contained in this document represents components of the legal health record. It is not the complete legal health record.[facility]
--- OUTSIDE RECORDS SUMMARY | 2025-03-17 12:42 | XMS_ITS | Encounter Summary ---
Author Organization [facility] Address [address] [place] [address] Phone Care Team Providers Care Cold Working Inspector Name Role Phone Javier Francois MD Primary Care Provider [phone] Javier Francois MD Unavailable [phone] Elena Crane MD Unavailable [phone] Reason for Visit * Reason Onset Date Comments Results 03/03/2025 Encounter Details Date Type Department Care Team (Late st Contact Info) Description 03/03/2025 Telephone [facility] [address] [place], [place] [phone] Javier Francois MD [address] [place], [place] [phone] [email or web address] Results Social History Tobacco Use Types Packs/Day [...] Notes * Dora Elizabeth RN - 03/12/2025 4:08 PM EST See other encounter. I already spoke to Meena this morning about these results. * Javier Francois MD - 03/11/2025 7:12 PM ESTAddended by: JAVIER FRANCOIS. on: 03/11/2025 07:12 PM Modules accepted: Orders * Javier Francois MD - 03/11/2025 7:10 PM EST Sodium is a little better at 130. BUN and creatinine are normal. White count, hemoglobin and hematocrit are low probably because of chemotherapy. AST and ALT borderline elevated which is nonspecific.I will order comprehensive metabolic panel to be done April 02. * Ayesha Isabel RN - 03/10/2025 2:31 PM EST Spoke to Katrina and advised. She states understanding. States she saw Dr Francois yesterday, had repeat labs this morning. * Ayesha Isabel RN - 03/10/2025 2:30 PM EST Katrina returned call. * Ayesha Isabel RN - 03/10/2025 10:56 [...] not included. Vicente Del Toro PA-C P Cmg Zachery [place] Rn Cc: Javier Francois MD Please let the patient know [...] Description 04/01/2025 4:00 PM EST Office Visit [facility] [address] [place], [place] [phone] Vicente Del Toro PA-C [address] [place], [place] [phone] [email or web address] Scheduled Orders Name Type Priority Associated Diagnoses Orde r Schedule Comprehensive Metabolic Panel (CMP) Lab Routine Hyponatremia Liver function abnormality Expected: 04/02/2025, Expires: 03/11/2026 documented as of this encounter Visit Diagnoses Diagnosis Hyponatremia- Primary Hyposmolality and/or hyponatremia Liver function abnormality documented in this encounter Additional Health Concerns Assessment Noted Time PHQ-2 Depression Total Score: 0 03/02/20 25 2:29 PM EST documented as of this encounter Care Teams Cold Working Inspector Relationship Specialty Start Date End Date Javier Francois MD [address] [place] [address] [email or web address] PCP - General Internal Medicine 03/27/17 Javier Francois MD [address] [place] [phone] [email or web address] Insurance Assigned Provider 06/30/23 Elena Crane MD [address] [place] [address] Internal Medicine 08/22/19 documented as of this encounter Additional Source Comments The information contained in this document represents components of the legal health record. It is not the complete legal health record.[facility]
--- OUTSIDE RECORDS SUMMARY | 2025-03-17 12:42 | XMS_ITS | Clinical Summary ---
Author Organization [facility] Address [address] [place] [address] Phone Care Team Providers Care Sound Designer Name Role Phone Daniel Francois MD Primary Care Provider [phone] Daniel Francois MD Unavailable Elena Crane MD Unavailable [phone] Allergies Active Allergy Reactions Criticality Noted Date [...] Active ferrous sulfate 325 mg (65 mg kasaan iron) tablet Take 325 mg by mouth [...] Encounters Date Type Department Care Team Description 03/12/2025 Telephone [facility] [address] [place] [address] Daniel Francois MD Results 03/11/2025 Orders Only [facility] [address] [place] [address] [place] MD 03/09/2025 3:00 PM EST Office Visit [facility] [address] [address] Daniel Francois MD Carcinoma of ovary, unspecified laterality (Primary Dx); Bilateral leg edema; Benign essential hypertension 03/03/2025 Telephone [facility] [address] [place] [address] Daniel Francois MD Results 03/02/2025 2:20 PM EST Office Visit [facility] [address] [place] [address] Vicente Del Toro PA-C Bilateral leg edema (Primary Dx) 02/27/2025 Telephone [facility] [address] [place] [address] Daniel Francois MD Leg Swelling; Foot Swelling 2025 Telephone [facility] [address] [place] [address] Daniel Francois MD Medication Question 01/23/2025 1:00 PM EDT Office Visit [facility] [address] [place] [address] Daniel Francois MD Benign essential hypertension (Primary Dx); Malignant neoplasm of ovary, unspecified laterality; 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 [address] [place] [address] Vicente Del Toro PA-C [address] [place] [address] [email or web address] Health Maintenance Due Date Last Done Comments ZOSTER VACCINES (1 of 2) 02/07/1960 Adult Td,Tdap Booster 01/25/2016 01/24/2006, 006 RSV VACCINE (1 - 1-dose 75+ series) 02/07/2016 INFLUENZA VACCINE (#1) 2024 COVID-19 VACCINE (2024- season) 2024 BLOOD PRESSURE 09/07/2025 03/09/2025 FOLLOW [...] OUTSIDE LAB Routine 03/10/2025 3:55 PM EST NT-PROBNP Routine 03/02/2025 3:12 PM EST Bilateral leg edema COMPREHENSIVE METABOLIC PANEL (CMP) Routine 03/02/2025 3:12 PM EST Bilateral leg edema HM DEXA SCAN Routine 11/02/2023 12:37 PM EDT from Last 3 Months or Most Recently Relevant to Health Maintenance Results * Outside Lab (Non-MGB) (03/11/2025 9:09 AM EST) Only the most recent of2 resultswithin the time period is included. us Historical Provider MD LAB BLOOD BKR ORDERABLES Final Result * (ABNORMAL) Comprehensive Metabolic Panel (CMP) (03/02/2025 3:12 PM EST) Sodium 128(L) 136 - 145 mmol/L 03/02/2025 9:21 PM EST [facility] Potassium 4.7 3.4 - 5.1 mmol/L 03/02/2025 9:21 PM [facility] Chloride 92(L) 98 - 107 mmol/L 03/02/2025 9:21 PM [facility] CO2 25 20 - 31 mmol/L 03/02/2025 9:21 PM [facility] BUN 11 6 - 23 mg/dL 03/02/2025 9:21 PM [facility] Creatinine 0.60 0.50 - 1.00 mg/dL 03/02/2025 9:21 PM [facility] Glucose 112(H) 70 - 99 mg/dL 03/02/2025 9:21 PM [facility] Calcium 9.6 8.5 - 10.5 mg/dL 03/02/2025 9:21 PM [facility] AST 31 <33 U/L 03/02/2025 9:21 PM [facility] ALT 17 <34 U/L 03/02/2025 9:21 PM [facility] Alkaline Phosphatase 59 40 - 130 U/L 03/02/2025 9:21 PM [facility] Bilirubin, Total 0.8 0.0 - 1.2 mg/dL 03/02/2025 9:21 PM [facility] Total Protein 8.2 6.4 - 8.3 g/dL 03/02/2025 9:21 PM [facility] Albumin 4.7 3.5 - 5.2 g/dL 03/02/2025 9:21 PM [facility] Globulin 3.5 1.9 - 4.1 g/dL 03/02/2025 9:21 PM [facility] eGFR 88 >59 mL/min/1.7 3m2 03/02/2025 9:21 PM [facility] Comment:Estimated glomerular filtration rate calculated using the CKD-EPI refit equation. Anion Gap 11 3 - 17 mmol/L 03/02/2025 9:21 PM [facility] Blood (Blood) Venipuncture / Unknown 03/02/2025 3:12 PM EST 03/02/2025 3:12 PM EST us Vicente Del Toro PA-C LAB BLOOD BKR ORDERABLES Antonia hernandez Result [address] [address] * NT-proBNP (03/02/2025 3:12 PM EST) NT-ProBNP 672 0 - 1,800 pg/mL 03/02/2025 9:21 PM EST [facility] Comment: Age <50 years: 0-450 pg/ml Age [...] LAB BLOOD BKR ORDERABLES Antonia l Result [address] [address] * DEXA SCAN (11/02/2023 12:37 PM EDT) us Historical Provider HEALTH MAINTENANCE Edited Result - Final from Last 3 Months or Most Recently Relevant to Health Maintenance Insurance MEDICARE PART A & B [employer] SUPPLEMENT MEDICARE PART A & B [employer] SUPPLEMENT MEDICARE PART A & B [employer] MEDEX SUPPLEMENT MEDICARE PART A & B [employer] MEDEX SUPPLEMENT MEDICARE PART A & B [facility] MEDEX SUPPLEMENT MEDICARE PART A & B [employer] MEDEX SUPPLEMENT MEDICARE PART A & B [employer] CROSS MEDEX SUPPLEMENT MEDICARE PART A & B [employer] MEDEX SUPPLEMENT MEDICARE PART A & B [employer] MEDEX SUPPLEMENT Advance Directives For more information, please contact: [phone] (9AM - 5PM [facility], Sunday-Sunday) Documents on File Type Date Recorded Patient Billing Associate Expl anation Healthcare Proxy 01/21/2024 Healthcare Proxy MOLST 01/21/2024 MOLST Care Teams Sound Designer Relationship Specialty Start Date End Date Daniel Francois MD [address] [place] [address] PCP - General Internal Medicine 03/27/17 Daniel Francois MD [address] [place] [address] Insurance Assigned Provider 06/30/23 Elena Crane MD [address] [place] [address] Internal Medicine 08/22/19 Additional Source Comments The information contained in this document represents components of the legal health record. It is not the complete legal health record.[facility]
[2025-03-17] MEDS: iohexoL 350 MG/ML 100 ML INFUS..BTL IV (14:02)
[2025-03-17] MEDS: Barium Sulfate Oral (Vanilla) 450 ML ORAL.SUSP 900 ML PO (14:03)
== END 2025-03-17 11:20 ==
LOC: HO.CT 11:19
PROVIDERS: PCP Internal Medicine; Visit Provider Internal Medicine Medical Oncology
DX: C56.9 Malignant neoplasm of unspecified ovary (principal)
CPT/HCPCS: 74177; Q9967

== ENCOUNTER → 2025-03-17 11:20 | Outpatient (BNV) | payer MEDICARE, SELFPAY | PROVIDERS: PCP Internal Medicine; Visit Provider Radiology Diagnostic Radiology | DX: C56.9 Malignant neoplasm of unspecified ovary (principal) | CPT/HCPCS: 74177 ==